=== PATIENT | female | born 1930 | race Caucasian/White ===

== ENCOUNTER 2017-01-16 07:29 | Inpatient (IN) | payer OTHER, MEDICARE ==
[2017-01-14 12:35] VITALS: BMI 28.8
--- NOTE | 2017-01-16 08:08 | HP ---
Satellite [facility] - Chief Complaint Chief Complaint: left shoulder mass - Past Medical History Allergies/Adverse Reactions: Allergies Allergy/AdvReac Type Severity Reaction Status Date / Time No Known Allergies Allergy Verified 01/14/17 12:25 - Current Medications Current Medications: Home Medications Medication Instructions Recorded Metoprolol Succinate [Toprol XL -] 25 mg PO HS #0 tab.sr.24h 06/05/13 Rosuvastatin Calcium [Crestor] 5 mg NR HS #0 tablet 06/05/13 Sertraline HCl [Zoloft -] 50 mg PO DAILY #0 tablet 06/05/13 Levothyroxine [Synthroid -] 137 mcg PO DAILY 01/14/17 Olmesartan Medoxomil [Benicar -] 40 mg PO DAILY 01/14/17 Hydrocodone/Acetaminophen [[place] 1 each PO Q6H PRN #40 tablet MDD 4 01/16/17 5-325 Tablet] Satellite Physical Exam - Physical Examination General Appearance: Well Nourished, Well Developed, Alert & Oriented x3 ENT: Clear Lung: Normal air movement Heart: Regular rate & rhythm Extremities: Other (left shoulder- + mass, full rom, nvi) Neurological: Intact, Alert, Oriented Satellite Impression/Plan - Impression/Plan Impression: left shoulder mass Operative Procedure: left shoulder mass excision Date to be Performed: 01/16/17
[2017-01-16] MEDS ORDERED: ROCURONIUM BROMIDE 50 MG/5 ML VIAL ONE (09:14)
[2017-01-16] MEDS ORDERED: MIDAZOLAM HCL 2 MG/2 ML SINGLE DOSE VIAL ONE (09:14)
[2017-01-16] MEDS ORDERED: ePHEDrine SULFATE 50 MG/1 ML AMPULE ONE ×3 (09:15→14:26)
[2017-01-16] MEDS ORDERED: ceFAZolin SODIUM 1 GM VIAL IVPB ONE (09:45)
[2017-01-16] MEDS ORDERED: SODIUM CHLORIDE 0.9% P/F 10 ML VIAL IJ ONE (10:08)
[2017-01-16] MEDS ORDERED: DEXAMETHASONE SOD PHOSPHATE 4 MG/1 ML VIAL ONE (10:11)
[2017-01-16] MEDS ORDERED: PHENYLEPHRINE HCL 10 MG/1 ML SINGLE DOSE VIAL ONE (10:12)
[2017-01-16] MEDS ORDERED: NEOSTIGMINE METHYLSULFATE 0.5 MG/ML - 10 ML MDV ONE (11:28)
--- NOTE | 2017-01-16 11:37 | OP ---
Operative Note - Note: Operative Date: 01/16/17 ([facility]) Pre-Operative Diagnosis: left shoulder mass Operation: left shoulder mass excision Post-Operative Diagnosis: Same as Pre-op Surgeon: Ubaldo Virgen Poultry Picker: Martinez Corral Anesthesiologist/PACKER INSPECTOR: Herminia Echevarria MD Anesthesia: General Specimens Removed: mass Estimated Blood Loss (mls): 1,200 Blood Volume Replaced (mls): 1 Operative Report Dictated: Yes
[2017-01-16] MEDS ORDERED: oxyCODONE HCL 5 MG TABLET PO PRN (12:08)
[2017-01-16] MEDS: ONDANSETRON 4 MG/2 ML VIAL IVPUSH PRN ×2 (12:30→13:30)
[2017-01-16] MEDS ORDERED: ONDANSETRON 4 MG/2 ML VIAL ONE (12:47)
[2017-01-16 13:29] LABS: TROPONIN I 0.02 ng/ml (0.00-0.05)
--- NOTE | 2017-01-16 14:00 | EKG ---
Test Reason : Blood Pressure : / mmHG Vent. Rate : 119 BPM Atrial Rate : 119 BPM P-R Int : 160 ms QRS Dur : 086 ms QT Int : 332 ms P-R-T Axes : 039 -34 062 degrees QTc Int : 467 ms SINUS TACHYCARDIA LEFT AXIS DEVIATION LEFT VENTRICULAR HYPERTROPHY WITH REPOLARIZATION ABNORMALITY ABNORMAL ECG WHEN COMPARED WITH ECG OF 04-JUN-2013 18:54, NO SIGNIFICANT CHANGE WAS FOUND Confirmed by UNIQUE PELAYO MD ([id number]) on 01/16/2017 2:00:47 PM Referred By: Carol ROCHE Confirmed By:UNIQUE PELAYO MD
[2017-01-16] MEDS: SODIUM CHLORIDE 1,000 ML IV SCH (16:00)
--- NOTE | 2017-01-16 16:18 | CON.CARD ---
Consult Consult Specialty:: Cardiology Reason for Consultation:: Post OP tachycardia - History of Present Illness Chief Complaint: S/P removal of shoulder mass History of Present Illness: This is an 86 year old female with a left should mass. She is S/P OR to remove the mass. Initial EKG after the surgery was Sinus tachycardia at 119 BPM with LAD, LVH, and NSSTTW changes. Troponin level 0.02. Her vital signs subsequently stabilized. - Alcohol/Substance Use Hx Alcohol Use: No - Smoking History Smoking history: Never smoked Have you smoked in the past 12 months: No Aproximately how many cigarettes per day: 0 Home Medications - Allergies Allergies/Adverse Reactions: Allergies Allergy/AdvReac Type Severity Reaction Status Date / Time No Known Allergies Allergy Verified 01/14/17 12:25 - Home Medications Home Medications: Ambulatory Orders Metoprolol Succinate [Toprol XL -] 25 mg PO HS #0 tab.sr.24h 06/05/13 Rosuvastatin Calcium [Crestor] 5 mg NR HS #0 tablet 06/05/13 Sertraline HCl [Zoloft -] 50 mg PO DAILY #0 tablet 06/05/13 Levothyroxine [Synthroid -] 137 mcg PO DAILY 01/14/17 Olmesartan Medoxomil [Benicar -] 40 mg PO DAILY 01/14/17 Hydrocodone/Acetaminophen [[place] 5-325 Tablet] 1 each PO Q6H PRN #40 tablet MDD 4 01/16/17 Review of Systems Unable to obtain ROS, reason: As per HPI Vital Signs: Vital Signs Temperature 97.6 F 01/16/17 15:30 Pulse Rate 103 H 01/16/17 15:30 Respiratory Rate 16 01/16/17 15:30 Blood Pressure 95/45 01/16/17 15:30 O2 Sat by Pulse Oximetry (%) 100 01/16/17 15:30 Constitutional: Yes: No Distress Neck: Yes: WNL Respiratory: Yes: CTA Bilaterally Gastrointestinal: Yes: Soft Cardiovascular: Yes: Regular Rate and Rhythm Heart Sounds: Yes: S1, S2 (No MRHG) Extremities: Yes: WNL Edema: No Neurological: Yes: WNL, Alert (Non focal), Oriented Psychiatric: Yes: WNL - Other Data Labs, Other Data: Troponin, BNP 01/16/17 12:20 Troponin I 0.02 Troponin, BNP 01/16/17 12:20 Troponin I 0.02 Assessment/Plan This is an 86 year old female with a left should mass. She is S/P OR to remove the mass. Initial EKG after the surgery was Sinus tachycardia at 119 BPM with LAD, LVH, and NSSTTW changes. Troponin level 0.02. Her vital signs subsequently stabilized. BP 95/45 mmHg Would hold Olmesartan Medoxomil (Benicar) given low BP Would continue Metoprolol XL 25 mg daily Will follow with you.
[2017-01-16 17:35] LABS: MCH 29.1 pg (25.7-33.7); MCHC 33.6 g/dl (32.0-36.0); MEAN CELL VOLUME 86.5 fl (80-96); MEAN PLT VOLUME 9.2 fl (7.5-11.1); PLATELET COUNT 218 K/MM3 (134-434); RDW 13.4 % (11.6-15.6); WHITE BLOOD COUNT 23.2 K/mm3 (4.0-10.0)
[2017-01-16] MEDS: CEFAZOLIN (PRE-DOCKED) 50 ML IVPB SCH (18:53)
[2017-01-16 20:03] LABS: PLATELET ESTIMATE ADEQUATE (NORMAL)
--- NOTE | 2017-01-16 20:28 | CONSULT ---
Consult Consult Specialty:: Pulm/CCM Reason for Consultation:: Intra-op blood loss, tachycardia and hypoension - History of Present Illness Chief Complaint: Post-op hypotension History of Present Illness: 86yow who is day #0 for removal of llT shoulder mass. OR course complicated by large ESBL with subsequent tachycardia and hypotension. She rec'd 2U PRBCs intra -op. In PACU rec'd another PRBC 1L NS bolus with improvement in BP. She was transferred to ICU for monitoring. In ICU Lt shoulder dressing dry. Post-op CBCwith Hgb 13-> - History Source History Provided By: Medical Record Limitations to Obtaining History: No Limitations - Past Medical History Cardio/Vascular: Yes: HTN, Hyperlipdemia - Alcohol/Substance Use Hx Alcohol Use: No - Smoking History Smoking history: Never smoked Have you smoked in the past 12 months: No Aproximately how many cigarettes per day: 0 Home Medications - Allergies Allergies/Adverse Reactions: Allergies Allergy/AdvReac Type Severity Reaction Status Date / Time No Known Allergies Allergy Verified 01/14/17 12:25 - Home Medications Home Medications: Ambulatory Orders Metoprolol Succinate [Toprol XL -] 25 mg PO HS #0 tab.sr.24h 06/05/13 Rosuvastatin Calcium [Crestor] 5 mg NR HS #0 tablet 06/05/13 Sertraline HCl [Zoloft -] 50 mg PO DAILY #0 tablet 06/05/13 Levothyroxine [Synthroid -] 137 mcg PO DAILY 01/14/17 Olmesartan Medoxomil [Benicar -] 40 mg PO DAILY 01/14/17 Hydrocodone/Acetaminophen [[place] 5-325 Tablet] 1 each PO Q6H PRN #40 tablet MDD 4 01/16/17 Family Disease History - Family Disease History Family History: Unremarkable Review of Systems - Review of Systems Constitutional: reports: No Symptoms Eyes: reports: No Symptoms HENT: reports: No Symptoms Neck: reports: No Symptoms Cardiovascular: reports: No Symptoms Respiratory: reports: No Symptoms Gastrointestinal: reports: No Symptoms Genitourinary: reports: No Symptoms Breasts: reports: No Symptoms Reported Musculoskeletal: reports: Joint Pain (Lt shoulder post-op pain) Neurological: reports: No Symptoms Endocrine: reports: No Symptoms Hematology/Lymphatic: reports: No Symptoms Psychiatric: reports: No Symptoms Pain Intensity: 7 Physical Exam Vital Signs: Vital Signs Temperature 98.4 F 08/09/17 16:00 Pulse Rate 71 01/16/17 18:00 Respiratory Rate 23 01/16/17 18:00 Blood Pressure 88/61 01/16/17 18:00 O2 Sat by Pulse Oximetry (%) 96 01/16/17 18:45 Constitutional: Yes: Well Nourished, Calm Eyes: Yes: Conjunctiva Clear HENT: Yes: Normocephalic Neck: Yes: Supple Cardiovascular: Yes: Regular Rate and Rhythm, Tachycardia Respiratory: Yes: WNL, Regular, CTA Bilaterally Gastrointestinal: Yes: Normal Bowel Sounds, Soft Musculoskeletal: Yes: Other (Lt shoulder with bulky surgical dressing with stable amt pink drainage; fingers warm , good cosmetic account coordinator, no reports numbness or tingling) Edema: No Neurological: Yes: Alert, Oriented ...Motor Strength: WNL Psychiatric: Yes: WNL, Alert, Oriented Labs: CBC, BMP 01/16/17 17:31 CBC,CMP WBC 23.2 K/mm3 (4.0-10.0) H D 01/16/17 17:31 RBC 4.55 M/mm3 (3.60-5.2) 01/16/17 17:31 Hgb 13.2 GM/dL (10.7-15.3) 01/16/17 17:31 Hct 39.3 % (32.4-45.2) 01/16/17 17:31 MCV 86.5 fl (80-96) 01/16/17 17:31 MCH 29.1 pg (25.7-33.7) 01/16/17 17:31 MCHC 33.6 g/dl (32.0-36.0) 01/16/17 17:31 RDW 13.4 % (11.6-15.6) 01/16/17 17:31 Plt Count 218 K/MM3 (134-434) 01/16/17 17:31 MPV 9.2 fl (7.5-11.1) 01/16/17 17:31 Neutrophils % 79.0 % (42.8-82.8) 01/16/17 17:31 Lymphocytes % 7.0 % (8-40) L D 01/16/17 17:31 Monocytes % 3.0 % (3.8-10.2) L 01/16/17 17:31 Band Neutrophils 11.0 % (0-10) H 01/16/17 17:31 Differential Comment Manual diff done 01/16/17 17:31 Platelet Estimate Adequate 01/16/17 17:31 Morphology Comment Slide scanned 01/16/17 17:31 Creatine Kinase 114 IU/L (26-192) 01/16/17 12:20 Troponin I 0.02 ng/ml (0.00-0.05) 01/16/17 12:20 Problem List - Problems (1) Post-op pain Code(s): G89.18 - OTHER ACUTE POSTPROCEDURAL PAIN (2) Hemorrhage complicating a procedure Code(s): LKA0976 - Assessment/Plan 86yow with PMH of HTN, HLD who was admitted to ICU for monitoring after 1.2L ESBL during lt shoulder mass excision. She was resuscitated with 3U PRBC and 1L NS. She remains tachycardic but BP stable. Dressing with stable drainage. Plan: -Serial CBC -Transfuse for e/o bleeding +/- Hgb <8 -HD monitoring -Hold antihypertensives for now -NC O2 as needed for O2 sat>92% -Pain management -Venodynes
[2017-01-16] MEDS ORDERED: PT OWN MED DRAWER 7, Y5N ONE (21:08)
[2017-01-16] MEDS: ACETAMINOPHEN 325 MG TABLET (FP) PO PRN (21:10)
[2017-01-16 21:21] LABS: MCH 29.1 pg (25.7-33.7); MCHC 33.9 g/dl (32.0-36.0); MEAN PLT VOLUME 9.4 fl (7.5-11.1); PLATELET COUNT 188 K/MM3 (134-434); RDW 13.7 % (11.6-15.6); WHITE BLOOD COUNT 20.7 K/mm3 (4.0-10.0)
[2017-01-16] MEDS: ROSUVASTATIN CA 5 MG TABLET (FP) PO SCH (21:22)
[2017-01-16] MEDS: METOPROLOL SUCCINATE 25 MG TAB.SR.24H (FP) PO SCH (21:37)
[2017-01-16] MEDS ORDERED: LACTATED RINGERS SOLUTION 1,000 ML IV STA (22:29)
[2017-01-17] MEDS ORDERED: LACTATED RINGERS SOLUTION 1,000 ML IV STA (00:05)
[2017-01-17] MEDS: MAG HYDROX/AL HYDROX/SIMETH 30 ML UNIT-DOSE CUP PO PRN (00:14)
[2017-01-17 00:17] LABS: MCH 29.4 pg (25.7-33.7); MCHC 34.2 g/dl (32.0-36.0); MEAN CELL VOLUME 85.9 fl (80-96); MEAN PLT VOLUME 9.3 fl (7.5-11.1); PLATELET COUNT 162 K/MM3 (134-434); RDW 13.8 % (11.6-15.6); WHITE BLOOD COUNT 16.2 K/mm3 (4.0-10.0)
[2017-01-17] MEDS: CEFAZOLIN (PRE-DOCKED) 50 ML IVPB SCH (03:21)
[2017-01-17] MEDS ORDERED: ONDANSETRON 4 MG/2 ML VIAL IVPUSH ONE (05:58)
[2017-01-17] MEDS ORDERED: LEVOTHYROXINE NA 125 MCG TABLET (FP) ONE (06:21)
[2017-01-17] MEDS ORDERED: LEVOTHYROXINE NA 25 MCG TABLET (FP) ONE (06:21)
[2017-01-17 06:32] LABS: MCH 29.4 pg (25.7-33.7); MCHC 34.7 g/dl (32.0-36.0); MEAN CELL VOLUME 84.8 fl (80-96); MEAN PLT VOLUME 9.3 fl (7.5-11.1); PLATELET COUNT 159 K/MM3 (134-434); RDW 13.7 % (11.6-15.6); WHITE BLOOD COUNT 13.9 K/mm3 (4.0-10.0)
[2017-01-17] MEDS: LEVOTHYROXINE 125 MCG, LEVOTHYROXINE 12.5 MCG PO SCH (06:34)
[2017-01-17] MEDS: DEXTROSE 5%-NORMAL SALINE 1,000 ML IV SCH (06:35)
[2017-01-17 06:42] LABS: INR 1.14 (0.82-1.09); PROTHROMBIN TIME (PATIENT) 12.6 SEC (9.98-11.88)
[2017-01-17 06:58] LABS: ALBUMIN 2.2 g/dl (3.4-5.0); ANION GAP 10 (8-16); BILIRUBIN,TOTAL 0.5 mg/dL (0.2-1.0); CALCIUM 7.4 mg/dL (8.5-10.1); CO2 25 mmol/L (21-32); CREATININE 0.9 mg/dL (0.55-1.02); GLUCOSE,RANDOM 160 mg/dL (74-106); MAGNESIUM 1.7 mg/dL (1.8-2.4); PHOSPHOROUS 2.8 mg/dL (2.5-4.9); SGOT/AST 12 U/L (15-37); SGPT/ALT 11 U/L (12-78)
[2017-01-17 06:59] LABS: ALK PHOS 33 U/L (45-117); TOT PROT 4.4 g/dl (6.4-8.2)
--- NOTE | 2017-01-17 07:39 | OP ---
DATE OF OPERATION: 01/16/2017 PREOPERATIVE DIAGNOSES: Left shoulder mass. POSTOPERATIVE DIAGNOSES: Left shoulder mass. PROCEDURE: Excision mass left shoulder and skin flap closure. SURGEON: Daryl Ordonez M.D. HAT MODEL: RIRI Vyas, Dr. Echevarria and Ani Lima CRNA. ANESTHESIA: General anesthesia. BLOOD LOSS: 1200 mL BLOOD GIVEN: 2 units packed red blood cells. DRAINS: None. COMPLICATIONS: None. SPECIMEN: Mass left shoulder. FLUID REPLACEMENT: 1500 mL Plasm-Lyte. This patient is an 86 -year-old female with a preoperative diagnosis of a huge mass in her left shoulder. In short, it has been growing for many years, probably [address] 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 After extensive preoperative discussions, the patient elected for a debulking procedure. She understands that there is some potential risks and complications including but not limited to infection, need for additional surgery, plastic surgery, redundant skin, poor cosmetic scar, recurrence of the mass, lack of full excision of the mass, pathology consistent with malignancy and requiring additional treatment, etc. She understands these and other potential risks and complications were discussed and the patient elected to undergo a debulking left shoulder procedure. It was clear to her that we would not attempt to get all of the tissue, if there is an adherence to neurovascular structures or if it went into the chest posteriorly or anteriorly. The patient was brought to the operating room, peripheral IV placed, IV sedation given, 2 gm of IV Ancef were given. LMA anesthesia was induced. She was placed into the beach chair position, left upper extremity was prepped and draped in a sterile fashion. A longitudinal incision was marked out with a marking pen over the midline of this mass. The skin was cut with a #10 scalpel blade. Subcutaneous hemostasis was achieved with a Bovie cautery. Dissection done down to the deltoid which was quite thin as a result of chronic outward pressure. The deltoid was split in line with its fibers for later repair. This revealed a very large fibrous mass. It was mostly yellowish and quite firm. There was one area of a seroma within the mass. It was incised to take pressure off and the serous fluid removed. Using a combination of self-retaining retractors and [employer] Mccune forceps for visualization I attempted to circumferentially dissect around the mass. I was adherent to the undersurface of the deltoid as well as the lateral aspect of the humerus and great care was taken to preserve any structures although by the end of the case no significant neurovascular structures were visualized or encountered. The mass was huge. I would estimate it was at least 12 inches x 12 inches. Some details of the surgery was that the anterior hemisphere was more consistent and homogenous fibrous tissue. The posterior hemisphere was more heterogenous with an area about the size of a baseball of inconsistent calcifications. The mass itself was no particularly vascular, it did not involve the humerus at all. That portion of the procedure was quite easy as it just came off the humerus. There was no extension into or out from the bone that I could see. There is no periosteal reaction. It was taken out piecemeal although I did have a long conversation with the pathologist postoperatively about the orientation of the mass and the consistency of the fibrous tissue in the anterior versus the posterior hemisphere. 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 Most of the mass was excised anteriorly, superiorly and laterally. There was a portion of very thick, dense, fibrous tissue which was still left in place along its most medial border near the rotator cuff and posteriorly tracing back towards the scapula and thoracic wall. This I left in place. We attempted to get excellent hemostasis all during the surgery. There was extensive blood loss however, estimated to be 1200 mL by myself and the anesthesiologist. Although, there were no specific untoward events, the patient was hypotensive throughout the case and she received a transfusion of 2 units of packed red blood cells at the end of the case continuing into the recovery room. That being said, she was no more unstable than hypotensive. The area was then copiously irrigated and washed out. Again, hemostasis was achieved. We waited and watched and there was no significant bleeding, just minor oozing. The deltoid was closed with 0 Vicryl sutures and I tried to eliminate some of the redundancy. I cut out an ellipse of redundant skin and did a skin wound flap closure. The 2-0 Vicryl was used to close the deep dermal layer, it came together quite well although distally there was some redundant tissue. Preoperative discussions made the patient clear that she may need some other skin surgery or plastic surgery which was not in my field. Final skin reapproximation was done with carleen in order to get the patient off the table as quickly as possible and although her blood pressure was stable but low. It was then washed and dried, covered with Xeroform and 4 x 4 gauze, ABD and tape. She was put into a sling, extubated, and brought to the ambulatory recovery room in stable condition. In the recovery room she was seen to be stable, continuing to get her 2 units of packed red blood cells as well as normal saline and she will be admitted overnight to the intensive care unit for observation, medical and cardiac evaluation. Although, as mentioned, no specific events have happened thus far. SURGERY: 1. Excision mass left shoulder. 2. Skin flap closure. DARYL ORDONEZ M.D. [id number]
[2017-01-17] MEDS ORDERED: RANITIDINE HCL 150 MG TABLET (FP) PO ONE (08:15)
--- NOTE | 2017-01-17 08:26 | CONSULT ---
Consult - History of Present Illness History of Present Illness: 86 Y/O FEMALE WITH H/O REMOVAL OF LARGE SHOULDER MASS PT REQUIRED PRBC PT NOTED WITH HYPOTENSION NO CP C/O DYSPEPSIA - Past Medical History Cardio/Vascular: Yes: HTN, Hyperlipdemia - Alcohol/Substance Use Hx Alcohol Use: No - Smoking History Smoking history: Never smoked Have you smoked in the past 12 months: No Aproximately how many cigarettes per day: 0 Home Medications - Allergies Allergies/Adverse Reactions: Allergies Allergy/AdvReac Type Severity Reaction Status Date / Time No Known Allergies Allergy Verified 01/14/17 12:25 - Home Medications Home Medications: Ambulatory Orders Metoprolol Succinate [Toprol XL -] 25 mg PO HS #0 tab.sr.24h 06/05/13 Rosuvastatin Calcium [Crestor] 5 mg NR HS #0 tablet 06/05/13 Sertraline HCl [Zoloft -] 50 mg PO DAILY #0 tablet 06/05/13 Levothyroxine [Synthroid -] 137 mcg PO DAILY 01/14/17 Olmesartan Medoxomil [Benicar -] 40 mg PO DAILY 01/14/17 Hydrocodone/Acetaminophen [[place] 5-325 Tablet] 1 each PO Q6H PRN #40 tablet MDD 4 01/16/17 Review of Systems - Review of Systems Cardiovascular: denies: Chest Pain Respiratory: denies: SOB Gastrointestinal: reports: Indigestion Musculoskeletal: reports: Extremity Pain Physical Exam Vital Signs: Vital Signs Temperature 99.2 F 01/17/17 07:00 Pulse Rate 95 H 01/17/17 07:00 Respiratory Rate 24 01/17/17 07:00 Blood Pressure 94/54 01/17/17 07:00 O2 Sat by Pulse Oximetry (%) 96 01/16/17 21:00 Cardiovascular: Yes: Regular Rate and Rhythm Respiratory: Yes: Regular, CTA Bilaterally Gastrointestinal: Yes: Normal Bowel Sounds, Soft Labs: CBC, BMP 01/17/17 05:15 01/17/17 05:15 Problem List - Problems (1) Hemorrhage complicating a procedure Assessment/Plan: FOLLOW LABS PRBC Code(s): PXM2160 - (2) Post-op pain Assessment/Plan: PAIN MEDS PER ORTHO Code(s): G89.18 - OTHER ACUTE POSTPROCEDURAL PAIN (3) HTN (hypertension) Assessment/Plan: HOLD MEDS AND MONITOR Code(s): I10 - ESSENTIAL (PRIMARY) HYPERTENSION (4) Dyspepsia Assessment/Plan: [place] PPI FOLLOW CE Code(s): R10.13 - EPIGASTRIC PAIN
[2017-01-17] MEDS ORDERED: PT OWN MED DRAWER 7, Y5N ONE (08:44)
--- NOTE | 2017-01-17 09:16 | PN ---
Progress Note (short form) - Note Progress Note: Pt seen and examined in ICU. She is completely awake and alert, only min c/o incisional pain left shoulder. No SOB, no CP, no diaphoresis. AVSS HR 95, mildly tachycardic BP low but stable, and at her normal baseline H/H mildly low 9.3/26.8 PE LUE looks great. Dressing CDI, no drainage, no bleeding NVI Excellent ROM at the elbow, forearm, wrist, fingers. Overall pt looks very good, stable, comfortable on POD #1 s/p large left shoulder mass excision. She is currently getting transfused another unit of PRBC. From an orthopedic pov she looks stable to discharge home this afternoon, if cleared by cardiology and PMD. F/U as an out pt in 7-10 days
[2017-01-17] MEDS: SERTRALINE HCL 50 MG TABLET (FP) PO SCH (09:55)
[2017-01-17] MEDS ORDERED: LEVOTHYROXINE NA 125 MCG TABLET (FP) PO SCH (10:00)
[2017-01-17] MEDS ORDERED: PANTOPRAZOLE SODIUM 100 ML IVPB SCH (10:00)
[2017-01-17] MEDS ORDERED: PANTOPRAZOLE 40 MG TABLET (FP) PO SCH (10:00)
--- NOTE | 2017-01-17 10:45 | PN ---
Progress Note (short form) - Note Progress Note: Anesthesia postop note 86 y/o F s/p GA for excision of left shoulder mass POD#1, in ICU aaox3, vss maintained without pressors, being transfused again this am. Intraoperative course complicated by significant blood loss, patient transfused intraop and postop, no cardiac or neurologic event. No anesthesia complications. further care as per critical care/ cardiology/ surgery teams.
[2017-01-17 10:54] LABS: CPK 137 IU/L (26-192); TROPONIN I 0.04 ng/ml (0.00-0.05)
[2017-01-17] MEDS: SODIUM CHLORIDE 1,000 ML IV SCH ×2 (14:00→16:00)
--- NOTE | 2017-01-17 14:01 | CONSULT ---
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: Peripheral Neuropathy Cardio/Vascular: Yes: HTN, Hyperlipdemia - Alcohol/Substance Use Hx Alcohol Use: No - Smoking History Smoking history: Never smoked Have you smoked in the past 12 months: No Aproximately how many cigarettes per day: 0 Home Medications - Allergies Allergies/Adverse Reactions: Allergies Allergy/AdvReac Type Severity Reaction Status Date / Time No Known Allergies Allergy Verified 01/14/17 12:25 - Home Medications Home Medications: Ambulatory Orders Metoprolol Succinate [Toprol XL -] 25 mg PO HS #0 tab.sr.24h 06/05/13 Rosuvastatin Calcium [Crestor] 5 mg NR HS #0 tablet 06/05/13 Sertraline HCl [Zoloft -] 50 mg PO DAILY #0 tablet 06/05/13 Levothyroxine [Synthroid -] 137 mcg PO DAILY 01/14/17 Olmesartan Medoxomil [Benicar -] 40 mg PO DAILY 01/14/17 Hydrocodone/Acetaminophen [[place] 5-325 Tablet] 1 each PO Q6H PRN #40 tablet MDD 4 01/16/17 Family Disease History - Family Disease History Family History: Unable to Obtain Physical Exam Vital Signs: Vital Signs Temperature 98.7 F 01/17/17 10:00 Pulse Rate 94 H 01/17/17 12:00 Respiratory Rate 30 H 01/17/17 12:00 Blood Pressure 101/51 01/17/17 12:00 O2 Sat by Pulse Oximetry (%) 96 01/17/17 09:00 Labs: CBC, BMP 01/17/17 05:15 01/17/17 05:15
--- NOTE | 2017-01-17 14:44 | PN ---
Teaching Attending Note Name of Resident: Odell Gonzales ATTENDING PHYSICIAN STATEMENT I saw and evaluated the patient. I reviewed the resident's note and discussed the case with the resident. I agree with the resident's findings and plan as documented. SUBJECTIVE: Patient seen and examined in the ICU. Awake and alert. Denies CP or SOB. Receiving pRBCs. No occult bleeding. Intake & Output 01/14/17 01/15/17 01/16/17 01/17/17 23:59 23:59 23:59 23:59 Intake Total 3650 3050 Output Total 1200 Balance 2450 3050 Weight 173 lb Last Vital Signs Temp Pulse Resp BP Pulse Ox 98.7 F 94 H 30 H 101/51 96 01/17/17 10:00 01/17/17 12:00 01/17/17 12:00 01/17/17 12:00 01/17/17 09:00 Active Medications Acetaminophen (Tylenol -) 650 mg PO Q6H PRN Last Admin: 01/16/17 21:10 Dose: 650 mg Al Hydroxide/Mg Hydroxide (Mylanta Oral Suspension -) 30 ml PO Q6H PRN PRN Reason: DYSPEPSIA Last Admin: 01/17/17 00:14 Dose: 30 ml Fentanyl (Sublimaze Injection -) 50 mcg IVPUSH [id number] PRN PRN Reason: PAIN Stop: 01/19/17 13:23 Sodium Chloride (Normal Saline -) 1,000 mls @ 42 mls/hr IV ASDIR [facility] Last Admin: 01/16/17 16:00 Dose: Not Given Dextrose/Sodium Chloride (D5-Ns -) 1,000 mls @ 75 mls/hr IV ASDIR [facility] Last Admin: 01/17/17 06:35 Dose: 75 mls/hr Levothyroxine Sodium 125 mcg/ (Levothyroxine Sodium 12.5 mcg) 137.5 mcg PO DAILY@0700 [facility] Last Admin: 01/17/17 06:34 Dose: 137.5 mcg Magnesium Chloride (Slow-Mag -) 64 mg PO DAILY [facility] Metoprolol Succinate (Toprol Xl -) 25 mg PO HS [facility] Last Admin: 01/16/17 21:37 Dose: Not Given Morphine Sulfate (Morphine Injection -) 1 mg IVPUSH Q4H PRN PRN Reason: PAIN Oxycodone HCl (Roxicodone -) 10 mg PO Q6H PRN PRN Reason: PAIN LEVEL 6-10 Last Admin: 01/17/17 01:26 Dose: 5 mg Pantoprazole Sodium (Protonix -) 40 mg PO BID [facility] Rosuvastatin Calcium (Crestor -) 5 mg PO HS [facility] Last Admin: 01/16/17 21:22 Dose: 5 mg Sertraline HCl (Zoloft -) 50 mg PO DAILY [facility] Last Admin: 01/17/17 09:55 Dose: 50 mg Valsartan (Diovan -) 320 mg PO DAILY [facility] Constitutional: Yes: Awake and alert, NAD Eyes: Yes: Conjunctiva Clear HENT: Yes: Normocephalic Neck: Yes: Supple Cardiovascular: Yes: Regular Rate and Rhythm, Tachycardia Respiratory: Yes: WNL, Regular, CTA Bilaterally Gastrointestinal: Yes: Normal Bowel Sounds, Soft Musculoskeletal: Yes: Other (Lt shoulder with bulky surgical dressing with stable amt pink drainage; fingers warm , good boarding specialist, no reports numbness or tingling) Edema: No Neurological: Yes: Alert, Oriented ...Motor Strength: WNL Psychiatric: Yes: WNL, Alert, Oriented Labs: Laboratory Results - last 24 hr 01/16/17 01/16/17 01/16/17 10:00 17:31 20:40 WBC 23.2 H D 20.7 H RBC 4.55 4.14 Hgb 13.2 12.1 Hct 39.3 35.6 MCV 86.5 86.0 MCH 29.1 29.1 MCHC 33.6 33.9 RDW 13.4 13.7 Plt Count 218 188 MPV 9.2 9.4 Neutrophils % 79.0 Lymphocytes % 7.0 L D Monocytes % 3.0 L Band Neutrophils 11.0 H Differential Comment Manual diff done Platelet Estimate Adequate Morphology Comment Slide scanned INR PTT (Actin FS) Sodium Potassium Chloride Carbon Dioxide Anion Gap BUN Creatinine Creat Clearance w eGFR Random Glucose Calcium Phosphorus Magnesium Total Bilirubin AST ALT Alkaline Phosphatase Creatine Kinase Troponin I Total Protein Albumin Blood Type B POSITIVE Antibody Screen Negative Crossmatch See Detail Crossmatch IS Only See Detail 01/17/17 01/17/17 01/17/17 00:00 05:15 05:15 WBC 16.2 H 13.9 H RBC 3.55 L 3.16 L Hgb 10.4 L D 9.3 L D Hct 30.5 L 26.8 L MCV 85.9 84.8 MCH 29.4 29.4 MCHC 34.2 34.7 RDW 13.8 13.7 Plt Count 162 159 MPV 9.3 9.3 Neutrophils % Lymphocytes % Monocytes % Band Neutrophils Differential Comment Platelet Estimate Morphology Comment INR 1.14 PTT (Actin FS) 25.0 L Sodium Potassium Chloride Carbon Dioxide Anion Gap BUN Creatinine Creat Clearance w eGFR Random Glucose Calcium Phosphorus Magnesium Total Bilirubin AST ALT Alkaline Phosphatase Creatine Kinase Troponin I Total Protein Albumin Blood Type Antibody Screen Crossmatch Crossmatch IS Only 01/17/17 01/17/17 05:15 05:15 WBC RBC Hgb Hct MCV MCH MCHC RDW Plt Count MPV Neutrophils % Lymphocytes % Monocytes % Band Neutrophils Differential Comment Platelet Estimate Morphology Comment INR PTT (Actin FS) Sodium 138 Potassium 4.1 D Chloride 103 Carbon Dioxide 25 Anion Gap 10 BUN 22 H Creatinine 0.9 Creat Clearance w eGFR 59.23 Random Glucose 160 H Calcium 7.4 L Phosphorus 2.8 Magnesium 1.7 L Total Bilirubin 0.5 D AST 12 L ALT 11 L D Alkaline Phosphatase 33 L D Creatine Kinase 137 Cancelled Troponin I 0.04 Cancelled Total Protein 4.4 L D Albumin 2.2 L D Blood Type Antibody Screen Crossmatch Crossmatch IS Only Problem List - Problems (1) Post-op pain Code(s): G89.18 - OTHER ACUTE POSTPROCEDURAL PAIN (2) Hemorrhage complicating a procedure Code(s): MTS8425 - Assessment/Plan Normal transfusion thresholds O2 as needed Hold BP meds until stable SCDs Pain control Incentive Spirometry Dr Narvaez
[2017-01-17 14:58] LABS: MCH 29.6 pg (25.7-33.7); MCHC 34.5 g/dl (32.0-36.0); MEAN PLT VOLUME 9.1 fl (7.5-11.1); PLATELET COUNT 135 K/MM3 (134-434); RDW 13.7 % (11.6-15.6); WHITE BLOOD COUNT 13.9 K/mm3 (4.0-10.0)
--- NOTE | 2017-01-17 15:28 | EKG ---
Test Reason : Blood Pressure : / mmHG Vent. Rate : 094 BPM Atrial Rate : 094 BPM P-R Int : 166 ms QRS Dur : 086 ms QT Int : 352 ms P-R-T Axes : 064 -16 049 degrees QTc Int : 440 ms NORMAL SINUS RHYTHM NONSPECIFIC T WAVE ABNORMALITY ABNORMAL ECG WHEN COMPARED WITH ECG OF 16-JAN-2017 12:17, NON-SPECIFIC CHANGE IN ST SEGMENT IN LATERAL LEADS NONSPECIFIC T WAVE ABNORMALITY, WORSE IN LATERAL LEADS Confirmed by AVRIL JOHNSON MD ([id number]) on 01/17/2017 3:28:30 PM Referred By: BERNABE SANTORO Confirmed By:AVRIL JOHNSON MD
--- NOTE | 2017-01-17 15:37 | PN ---
Physical Exam: SUBJECTIVE: Patient seen and examined. She is complaining of heartburn today, no pain at surgical site. OBJECTIVE: Vital Signs Period Temp Pulse Resp BP Sys/Hernandez Pulse Ox Last 24 Hr 98.4 F-99.4 F 61-106 16-30 79-115/38-75 96-96 GENERAL: The patient is awake, alert, and fully oriented, in no acute distress. HEAD: Normal with no signs of trauma. EYES: PERRL, extraocular movements intact, sclera anicteric, conjunctiva clear. No ptosis. NECK: Trachea midline, full range of motion, supple. LUNGS: Breath sounds equal, clear to auscultation bilaterally, no wheezes, no crackles, no accessory muscle use. HEART: Regular rate and rhythm, S1, S2 without murmur, rub or gallop. ABDOMEN: Soft, nontender, nondistended, normoactive bowel sounds, no guarding, no rebound. EXTREMITIES: 2+ pulses, warm, well-perfused, no edema. NEUROLOGICAL: Cranial nerves II through X grossly intact. Normal speech, gait not observed. no focal neuro deficits. PSYCH: Normal mood, normal affect. SKIN: Warm, dry, normal turgor, no rashes or lesions noted Laboratory Results - last 24 hr 01/16/17 01/16/17 01/16/17 10:00 17:31 20:40 WBC 23.2 H D 20.7 H RBC 4.55 4.14 Hgb 13.2 12.1 Hct 39.3 35.6 MCV 86.5 86.0 MCH 29.1 29.1 MCHC 33.6 33.9 RDW 13.4 13.7 Plt Count 218 188 MPV 9.2 9.4 Neutrophils % 79.0 Lymphocytes % 7.0 L D Monocytes % 3.0 L Band Neutrophils 11.0 H Differential Comment Manual diff done Platelet Estimate Adequate Morphology Comment Slide scanned INR PTT (Actin FS) Sodium Potassium Chloride Carbon Dioxide Anion Gap BUN Creatinine Creat Clearance w eGFR Random Glucose Calcium Phosphorus Magnesium Total Bilirubin AST ALT Alkaline Phosphatase Creatine Kinase Troponin I Total Protein Albumin Blood Type B POSITIVE Antibody Screen Negative Crossmatch See Detail Crossmatch IS Only See Detail 01/17/17 01/17/17 01/17/17 00:00 05:15 05:15 WBC 16.2 H 13.9 H RBC 3.55 L 3.16 L Hgb 10.4 L D 9.3 L D Hct 30.5 L 26.8 L MCV 85.9 84.8 MCH 29.4 29.4 MCHC 34.2 34.7 RDW 13.8 13.7 Plt Count 162 159 MPV 9.3 9.3 Neutrophils % Lymphocytes % Monocytes % Band Neutrophils Differential Comment Platelet Estimate Morphology Comment INR 1.14 PTT (Actin FS) 25.0 L Sodium Potassium Chloride Carbon Dioxide Anion Gap BUN Creatinine Creat Clearance w eGFR Random Glucose Calcium Phosphorus Magnesium Total Bilirubin AST ALT Alkaline Phosphatase Creatine Kinase Troponin I Total Protein Albumin Blood Type Antibody Screen Crossmatch Crossmatch IS Only 01/17/17 01/17/17 01/17/17 05:15 05:15 14:15 WBC 13.9 H RBC 3.52 L Hgb 10.4 L D Hct 30.2 L MCV 86.0 MCH 29.6 MCHC 34.5 RDW 13.7 Plt Count 135 MPV 9.1 Neutrophils % Lymphocytes % Monocytes % Band Neutrophils Differential Comment Platelet Estimate Morphology Comment INR PTT (Actin FS) Sodium 138 Potassium 4.1 D Chloride 103 Carbon Dioxide 25 Anion Gap 10 BUN 22 H Creatinine 0.9 Creat Clearance w eGFR 59.23 Random Glucose 160 H Calcium 7.4 L Phosphorus 2.8 Magnesium 1.7 L Total Bilirubin 0.5 D AST 12 L ALT 11 L D Alkaline Phosphatase 33 L D Creatine Kinase 137 Cancelled Troponin I 0.04 Cancelled Total Protein 4.4 L D Albumin 2.2 L D Blood Type Antibody Screen Crossmatch Crossmatch IS Only Active Medications Generic Name Dose Route Start Last Admin Trade Name Freq PRN Reason Stop Dose Admin Acetaminophen 650 mg 01/16/17 12:09 01/16/17 21:10 Tylenol - PO 650 mg Q6H PRN Administration Al Hydroxide/Mg Hydroxide 30 ml 01/16/17 23:36 01/17/17 00:14 Mylanta Oral Suspension - PO 30 ml Q6H PRN Administration DYSPEPSIA Fentanyl 50 mcg 01/16/17 13:22 Sublimaze Injection - IVPUSH 01/19/17 13:23 [id number] PRN PAIN Sodium Chloride 1,000 mls @ 42 mls/hr 01/16/17 14:00 01/16/17 16:00 Normal Saline - IV Not Given ASDIR [facility] Dextrose/Sodium Chloride 1,000 mls @ 75 mls/hr 01/17/17 05:45 01/17/17 06:35 D5-Ns - IV 75 mls/hr ASDIR [facility] Administration Levothyroxine Sodium 125 mcg/ 137.5 mcg 01/17/17 07:00 01/17/17 06:34 Levothyroxine Sodium 12.5 mcg PO 137.5 mcg DAILY@0700 [facility] Administration Magnesium Chloride 64 mg 01/17/17 14:30 Slow-Mag - PO DAILY [facility] Metoprolol Succinate 25 mg 01/16/17 22:00 01/16/17 21:37 Toprol Xl - PO Not Given HS [facility] Morphine Sulfate 1 mg 01/16/17 11:38 Morphine Injection - IVPUSH Q4H PRN PAIN Oxycodone HCl 10 mg 01/16/17 12:08 01/17/17 01:26 Roxicodone - PO 5 mg Q6H PRN Administration PAIN LEVEL 6-10 Pantoprazole Sodium 40 mg 01/17/17 22:00 Protonix - PO BID [facility] Rosuvastatin Calcium 5 mg 01/16/17 22:00 01/16/17 21:22 Crestor - PO 5 mg HS [facility] Administration Sertraline HCl 50 mg 01/17/17 10:00 01/17/17 09:55 Zoloft - PO 50 mg DAILY [facility] Administration Valsartan 320 mg 01/17/17 10:00 Diovan - PO DAILY [facility] ASSESSMENT/PLAN: Neuro: -no deficits, A&Ox3 -Monitor right arm for weakness, numbness Cardio: -pmh htn -valsartan 320mg daily -toprol xl 25mg PO HS Hematology: -s/p tumor resection with a large estimated blood loss -s/p 1 unit overnight and 1 unit today -s/p 4 units this visit -Hb stable, 10.4 -> 9.3 -> 10.4 -no weakness, dizziness, lightheadedness -will transfuse as indicated Abdominal: -PMH hiatal hernia c/o acid reflux -Zantac 150mg daily -Protonix 40mg BID FEN: -D5NS @ 75 -magnesium 1.7; will replete. will continue to monitor -Sodium controlled diet Dispo: -patient is stable to transfer to a telemetry floor Problem List - Problems (1) Dyspepsia Code(s): R10.13 - EPIGASTRIC PAIN (2) HTN (hypertension) Code(s): I10 - ESSENTIAL (PRIMARY) HYPERTENSION (3) Hemorrhage complicating a procedure Code(s): GUJ9240 - (4) Post-op pain Code(s): G89.18 - OTHER ACUTE POSTPROCEDURAL PAIN (5) Blood loss anemia Code(s): D50.0 - IRON DEFICIENCY ANEMIA SECONDARY TO BLOOD LOSS (CHRONIC) Visit type - Emergency Visit Emergency Visit: Yes ED Registration Date: 01/16/17 Care time: The patient presented to the Emergency Department on the above date and was hospitalized for further evaluation of their emergent condition. - New Patient This patient is new to me today: Yes Date on this admission: 01/17/17 - Critical Care Critical Care patient: No Total Critical Care Time (in minutes): 40 Critical Care Statement: The care of this patient involved high complexity decision making to prevent further life threatening deterioration of the patient 's condition and/or to evaluate & treat vital organ system(s) failure or risk of failure.
--- NOTE | 2017-01-17 16:32 | PN ---
Progress Note, Physician Chief Complaint: Appears comfortable History of Present Illness: This is an 86 year old female with a left should mass. She is S/P OR to remove the mass. Initial EKG after the surgery was Sinus tachycardia at 119 BPM with LAD, LVH, and NSSTTW changes. Troponin level 0.02. Her vital signs subsequently stabilized. - Current Medication List Current Medications: Active Medications Acetaminophen (Tylenol -) 650 mg PO Q6H PRN Last Admin: 01/16/17 21:10 Dose: 650 mg Al Hydroxide/Mg Hydroxide (Mylanta Oral Suspension -) 30 ml PO Q6H PRN PRN Reason: DYSPEPSIA Last Admin: 01/17/17 00:14 Dose: 30 ml Fentanyl (Sublimaze Injection -) 50 mcg IVPUSH [id number] PRN PRN Reason: PAIN Stop: 01/19/17 13:23 Sodium Chloride (Normal Saline -) 1,000 mls @ 42 mls/hr IV ASDIR [facility] Last Admin: 01/16/17 16:00 Dose: Not Given Dextrose/Sodium Chloride (D5-Ns -) 1,000 mls @ 75 mls/hr IV ASDIR [facility] Last Admin: 01/17/17 06:35 Dose: 75 mls/hr Levothyroxine Sodium 125 mcg/ (Levothyroxine Sodium 12.5 mcg) 137.5 mcg PO DAILY@0700 [facility] Last Admin: 01/17/17 06:34 Dose: 137.5 mcg Magnesium Chloride (Slow-Mag -) 64 mg PO DAILY [facility] Metoprolol Succinate (Toprol Xl -) 25 mg PO [facility] Last Admin: 01/16/17 21:37 Dose: Not Given Morphine Sulfate (Morphine Injection -) 1 mg IVPUSH Q4H PRN PRN Reason: PAIN Oxycodone HCl (Roxicodone -) 10 mg PO Q6H PRN PRN Reason: PAIN LEVEL 6-10 Last Admin: 01/17/17 01:26 Dose: 5 mg Pantoprazole Sodium (Protonix -) 40 mg PO BID [facility] Rosuvastatin Calcium (Crestor -) 5 mg PO [facility] Last Admin: 01/16/17 21:22 Dose: 5 mg Sertraline HCl (Zoloft -) 50 mg PO DAILY [facility] Last Admin: 01/17/17 09:55 Dose: 50 mg Valsartan (Diovan -) 320 mg PO DAILY [facility] - Objective Vital Signs: Vital Signs Temperature 98.7 F 01/17/17 10:00 Pulse Rate 94 H 01/17/17 12:00 Respiratory Rate 30 H 01/17/17 12:00 Blood Pressure 101/51 01/17/17 12:00 O2 Sat by Pulse Oximetry (%) 96 01/17/17 09:00 Constitutional: Yes: No Distress Neck: Yes: WNL Cardiovascular: Yes: Regular Rate and Rhythm, S1, S2 (No MRHG) Respiratory: Yes: CTA Bilaterally Gastrointestinal: Yes: Soft Extremities: Yes: WNL Edema: No Neurological: Yes: WNL Psychiatric: Yes: WNL Labs: CBC, BMP 01/17/17 14:15 01/17/17 05:15 INR, PTT INR 1.14 (0.82-1.09) 01/17/17 05:15 Assessment/Plan This is an 86 year old female with a left should mass. She is S/P OR to remove the mass. Initial EKG after the surgery was Sinus tachycardia at 119 BPM with LAD, LVH, and NSSTTW changes. Troponin level 0.02. Her vital signs subsequently stabilized. Continue cardiac medications: Metoprolol Succinate (Toprol Xl -) 25 mg PO HS [facility] Last Admin: 01/16/17 21:37 Dose: Not Given Rosuvastatin Calcium (Crestor -) 5 mg PO [facility] Last Admin: 01/16/17 21:22 Dose: 5 mg Valsartan (Diovan -) 320 mg PO DAILY [facility] Will follow with you.
[2017-01-17] MEDS: MAGNESIUM CL 64 MG TABLET.SA PO SCH (17:10)
[2017-01-17] MEDS: PANTOPRAZOLE 40 MG TABLET (FP) PO SCH (21:30)
[2017-01-17] MEDS: METOPROLOL SUCCINATE 25 MG TAB.SR.24H (FP) PO SCH (21:30)
[2017-01-17] MEDS: ROSUVASTATIN CA 5 MG TABLET (FP) PO SCH (21:30)
[2017-01-17] MEDS: ACETAMINOPHEN 325 MG TABLET (FP) PO PRN (21:34)
[2017-01-17] MEDS: morphine CARPU-JECT 4 MG/1 ML DISP.SYRIN IVPUSH PRN (23:57)
[2017-01-18] MEDS ORDERED: LEVOTHYROXINE NA 25 MCG TABLET (FP) ONE (05:41)
[2017-01-18] MEDS ORDERED: LEVOTHYROXINE NA 125 MCG TABLET (FP) ONE (05:41)
[2017-01-18] MEDS: LEVOTHYROXINE 125 MCG, LEVOTHYROXINE 12.5 MCG PO SCH (06:31)
[2017-01-18] MEDS: DEXTROSE 5%-NORMAL SALINE 1,000 ML IV SCH (06:31)
[2017-01-18 07:51] LABS: MCH 29.2 pg (25.7-33.7); MCHC 33.7 g/dl (32.0-36.0); MEAN CELL VOLUME 86.6 fl (80-96); PLATELET COUNT 112 K/MM3 (134-434); RDW 14.1 % (11.6-15.6); WHITE BLOOD COUNT 11.2 K/mm3 (4.0-10.0)
[2017-01-18 08:12] LABS: ALBUMIN 2.1 g/dl (3.4-5.0); ALK PHOS 37 U/L (45-117); ANION GAP 4 (8-16); BILIRUBIN,TOTAL 0.5 mg/dL (0.2-1.0); CALCIUM 7.2 mg/dL (8.5-10.1); CO2 29 mmol/L (21-32); CREATININE 0.6 mg/dL (0.55-1.02); GLUCOSE,RANDOM 124 mg/dL (74-106); SGOT/AST 9 U/L (15-37); SGPT/ALT 8 U/L (12-78); TOT PROT 4.4 g/dl (6.4-8.2)
--- NOTE | 2017-01-18 08:34 | PN ---
Progress Note (short form) - Note Progress Note: Ortho Pt see and examined s/p left shoulder mass excision pod #2- doing well Selected Entries 01/18/17 06:00 Temperature 98.2 F Pulse Rate 90 Respiratory 16 Rate Blood Pressure 124/73 Laboratory Tests 01/18/17 05:50 WBC 11.2 H Hgb 8.7 L D Hct 26.0 L Plt Count 112 L dressing c/d/i, full rom of elbow, wrist and hand, nvi a/p PT eval before d/c rom and wbat on left UE sling for comfort ok to d/c from ortho pov f/u in the office in 7-10 days
[2017-01-18] MEDS ORDERED: PT OWN MED DRAWER 7, Y5N ONE (08:40)
[2017-01-18] MEDS: SERTRALINE HCL 50 MG TABLET (FP) PO SCH (09:50)
[2017-01-18] MEDS: MAGNESIUM CL 64 MG TABLET.SA PO SCH (09:50)
[2017-01-18] MEDS: PANTOPRAZOLE 40 MG TABLET (FP) PO SCH ×2 (09:50→21:33)
[2017-01-18] MEDS: VALSARTAN 160 MG TABLET (UD) PO SCH ×2 (11:41→12:05)
--- NOTE | 2017-01-18 12:06 | PN ---
Progress Note, Physician Chief Complaint: patient seen and examined today POD 2 s/p left shoulder mass excision awake alert wants to sit in chair today says she will got to her nephew home in [place] when she leaves the hospital needs to see PT today , possible VNS referral as well - Current Medication List Current Medications: Active Medications Acetaminophen (Tylenol -) 650 mg PO Q6H PRN Last Admin: 01/17/17 21:34 Dose: 650 mg Al Hydroxide/Mg Hydroxide (Mylanta Oral Suspension -) 30 ml PO Q6H PRN PRN Reason: DYSPEPSIA Last Admin: 01/17/17 00:14 Dose: 30 ml Fentanyl (Sublimaze Injection -) 50 mcg IVPUSH [id number] PRN PRN Reason: PAIN Stop: 01/19/17 13:23 Dextrose/Sodium Chloride (D5-Ns -) 1,000 mls @ 75 mls/hr IV ASDIR [facility] Last Admin: 01/18/17 06:31 Dose: 75 mls/hr Levothyroxine Sodium 125 mcg/ (Levothyroxine Sodium 12.5 mcg) 137.5 mcg PO DAILY@0700 [facility] Last Admin: 01/18/17 06:31 Dose: 137.5 mcg Magnesium Chloride (Slow-Mag -) 64 mg PO DAILY [facility] Last Admin: 01/18/17 09:50 Dose: 64 mg Metoprolol Succinate (Toprol Xl -) 25 mg PO [facility] Last Admin: 01/17/17 21:30 Dose: 25 mg Morphine Sulfate (Morphine Injection -) 1 mg IVPUSH Q4H PRN PRN Reason: PAIN Last Admin: 01/17/17 23:57 Dose: 1 mg Oxycodone HCl (Roxicodone -) 10 mg PO Q6H PRN PRN Reason: PAIN LEVEL 6-10 Last Admin: 01/17/17 01:26 Dose: 5 mg Pantoprazole Sodium (Protonix -) 40 mg PO BID [facility] Last Admin: 01/18/17 09:50 Dose: 40 mg Rosuvastatin Calcium (Crestor -) 5 mg PO HS [facility] Last Admin: 01/17/17 21:30 Dose: 5 mg Sertraline HCl (Zoloft -) 50 mg PO DAILY [facility] Last Admin: 01/18/17 09:50 Dose: 50 mg Valsartan (Diovan -) 320 mg PO DAILY [facility] Last Admin: 01/18/17 11:41 Dose: 320 mg - Objective Vital Signs: Vital Signs Temperature 98.9 F 01/18/17 09:13 Pulse Rate 83 01/18/17 09:13 Respiratory Rate 18 01/18/17 09:13 Blood Pressure 106/60 01/18/17 09:13 O2 Sat by Pulse Oximetry (%) 95 01/18/17 09:00 Constitutional: Yes: Calm Cardiovascular: Yes: Regular Rate and Rhythm, S1, S2 Respiratory: Yes: CTA Bilaterally Gastrointestinal: Yes: Normal Bowel Sounds, Soft Extremities: Yes: Other (left shoulder dressing) Neurological: Yes: Alert, Oriented Labs: CBC, BMP 01/18/17 05:50 01/18/17 05:50 INR, PTT INR 1.14 (0.82-1.09) 01/17/17 05:15 Problem List - Problems (1) Blood loss anemia Assessment/Plan: s/p 4 units of PRBC repeat cbc as today its 8.7 if less than will transfuse 1 unit Code(s): D50.0 - IRON DEFICIENCY ANEMIA SECONDARY TO BLOOD LOSS (CHRONIC) (2) HTN (hypertension) Assessment/Plan: valsartan and toprol Code(s): I10 - ESSENTIAL (PRIMARY) HYPERTENSION (3) Mass of joint of left shoulder Assessment/Plan: s/p excision PT eval today VNS referral pain control stool softner Code(s): R22.32 - LOCALIZED SWELLING, MASS AND LUMP, LEFT UPPER LIMB (4) Hypothyroid Assessment/Plan: check tsh on synthroid Code(s): E03.9 - HYPOTHYROIDISM, UNSPECIFIED
[2017-01-18 12:57] LABS: BASOPHIL 0.5 % (0-2.0); EOSINOPHIL 0.4 % (0-4.5); MCHC 33.7 g/dl (32.0-36.0); MEAN CELL VOLUME 86.2 fl (80-96); MEAN PLT VOLUME 9.1 fl (7.5-11.1); NEUTROPHILS 81.6 % (42.8-82.8); PLATELET COUNT 143 K/MM3 (134-434); WHITE BLOOD COUNT 12.8 K/mm3 (4.0-10.0)
--- NOTE | 2017-01-18 15:20 | PN ---
Progress Note, Physician Chief Complaint: Appears comfortable History of Present Illness: This is an 86 year old female with a left should mass. She is S/P OR to remove the mass. Initial EKG after the surgery was Sinus tachycardia at 119 BPM with LAD, LVH, and NSSTTW changes. Troponin level 0.02. Her vital signs subsequently stabilized. - Current Medication List Current Medications: Active Medications Acetaminophen (Tylenol -) 650 mg PO Q6H PRN Last Admin: 01/17/17 21:34 Dose: 650 mg Al Hydroxide/Mg Hydroxide (Mylanta Oral Suspension -) 30 ml PO Q6H PRN PRN Reason: DYSPEPSIA Last Admin: 01/17/17 00:14 Dose: 30 ml Fentanyl (Sublimaze Injection -) 50 mcg IVPUSH [id number] PRN PRN Reason: PAIN Stop: 01/19/17 13:23 Levothyroxine Sodium 125 mcg/ (Levothyroxine Sodium 12.5 mcg) 137.5 mcg PO DAILY@0700 [facility] Last Admin: 01/18/17 06:31 Dose: 137.5 mcg Magnesium Chloride (Slow-Mag -) 64 mg PO DAILY [facility] Last Admin: 01/18/17 09:50 Dose: 64 mg Metoprolol Succinate (Toprol Xl -) 25 mg PO HS [facility] Last Admin: 01/17/17 21:30 Dose: 25 mg Morphine Sulfate (Morphine Injection -) 1 mg IVPUSH Q4H PRN PRN Reason: PAIN Last Admin: 01/17/17 23:57 Dose: 1 mg Oxycodone HCl (Roxicodone -) 10 mg PO Q6H PRN PRN Reason: PAIN LEVEL 6-10 Last Admin: 01/17/17 01:26 Dose: 5 mg Pantoprazole Sodium (Protonix -) 40 mg PO BID [facility] Last Admin: 01/18/17 09:50 Dose: 40 mg Rosuvastatin Calcium (Crestor -) 5 mg PO HS [facility] Last Admin: 01/17/17 21:30 Dose: 5 mg Sertraline HCl (Zoloft -) 50 mg PO DAILY [facility] Last Admin: 01/18/17 09:50 Dose: 50 mg Valsartan (Diovan -) 320 mg PO DAILY [facility] Last Admin: 01/18/17 12:05 Dose: Not Given - Objective Vital Signs: Vital Signs Temperature 98.9 F 01/18/17 09:13 Pulse Rate 83 01/18/17 09:13 Respiratory Rate 18 01/18/17 09:13 Blood Pressure 106/60 01/18/17 09:13 O2 Sat by Pulse Oximetry (%) 95 01/18/17 09:00 Constitutional: Yes: No Distress Neck: Yes: WNL Cardiovascular: Yes: Regular Rate and Rhythm, S1, S2 (No MRHG) Respiratory: Yes: CTA Bilaterally Gastrointestinal: Yes: Soft Edema: No Neurological: Yes: Alert, Oriented (No MRHG) Psychiatric: Yes: WNL Labs: CBC, BMP 01/18/17 12:40 01/18/17 05:50 INR, PTT INR 1.14 (0.82-1.09) 01/17/17 05:15 Assessment/Plan This is an 86 year old female with a left should mass. She is S/P OR to remove the mass. Initial EKG after the surgery was Sinus tachycardia at 119 BPM with LAD, LVH, and NSSTTW changes. Troponin level 0.02. Her vital signs subsequently stabilized. Continue cardiac medications: Metoprolol Succinate (Toprol Xl -) 25 mg PO HS [facility] Last Admin: 01/16/17 21:37 Dose: Not Given Rosuvastatin Calcium (Crestor -) 5 mg PO HS [facility] Last Admin: 01/16/17 21:22 Dose: 5 mg Valsartan (Diovan -) 320 mg PO DAILY [facility] - Not given for low BP Will follow with you.
[2017-01-18] MEDS: ROSUVASTATIN CA 5 MG TABLET (FP) PO SCH (21:33)
[2017-01-18] MEDS: METOPROLOL SUCCINATE 25 MG TAB.SR.24H (FP) PO SCH (21:33)
[2017-01-19] MEDS: morphine CARPU-JECT 4 MG/1 ML DISP.SYRIN IVPUSH PRN (00:16)
[2017-01-19] MEDS ORDERED: LEVOTHYROXINE NA 25 MCG TABLET (FP) ONE (05:53)
[2017-01-19] MEDS ORDERED: LEVOTHYROXINE NA 125 MCG TABLET (FP) ONE (05:54)
[2017-01-19] MEDS: LEVOTHYROXINE 125 MCG, LEVOTHYROXINE 12.5 MCG PO SCH (06:41)
[2017-01-19] MEDS ORDERED: PT OWN MED DRAWER 7, Y5N ONE (09:28)
[2017-01-19] MEDS: VALSARTAN 160 MG TABLET (UD) PO SCH (09:35)
[2017-01-19] MEDS: MAGNESIUM CL 64 MG TABLET.SA PO SCH (09:36)
[2017-01-19] MEDS: PANTOPRAZOLE 40 MG TABLET (FP) PO SCH ×2 (09:36→21:39)
[2017-01-19] MEDS: SERTRALINE HCL 50 MG TABLET (FP) PO SCH (09:36)
--- NOTE | 2017-01-19 10:35 | PN ---
Progress Note, Physician History of Present Illness: 86 Y/O FEMALE WITH H/O REMOVAL OF LARGE SHOULDER MASS PT REQUIRED PRBC PT NOTED WITH HYPOTENSION NO CP - Current Medication List Current Medications: Active Medications Acetaminophen (Tylenol -) 650 mg PO Q6H PRN Last Admin: 01/17/17 21:34 Dose: 650 mg Al Hydroxide/Mg Hydroxide (Mylanta Oral Suspension -) 30 ml PO Q6H PRN PRN Reason: DYSPEPSIA Last Admin: 01/17/17 00:14 Dose: 30 ml Fentanyl (Sublimaze Injection -) 50 mcg IVPUSH [id number] PRN PRN Reason: PAIN Stop: 01/19/17 13:23 Levothyroxine Sodium 125 mcg/ (Levothyroxine Sodium 12.5 mcg) 137.5 mcg PO DAILY@0700 [facility] Last Admin: 01/19/17 06:41 Dose: 137.5 mcg Magnesium Chloride (Slow-Mag -) 64 mg PO DAILY [facility] Last Admin: 01/19/17 09:36 Dose: 64 mg Metoprolol Succinate (Toprol Xl -) 25 mg PO [facility] Last Admin: 01/18/17 21:33 Dose: 25 mg Morphine Sulfate (Morphine Injection -) 1 mg IVPUSH Q4H PRN PRN Reason: PAIN Last Admin: 01/19/17 00:16 Dose: 1 mg Oxycodone HCl (Roxicodone -) 10 mg PO Q6H PRN PRN Reason: PAIN LEVEL 6-10 Last Admin: 01/17/17 01:26 Dose: 5 mg Pantoprazole Sodium (Protonix -) 40 mg PO BID [facility] Last Admin: 01/19/17 09:36 Dose: 40 mg Rosuvastatin Calcium (Crestor -) 5 mg PO [facility] Last Admin: 01/18/17 21:33 Dose: 5 mg Sertraline HCl (Zoloft -) 50 mg PO DAILY [facility] Last Admin: 01/19/17 09:36 Dose: 50 mg Valsartan (Diovan -) 320 mg PO DAILY [facility] Last Admin: 01/19/17 09:35 Dose: 320 mg - Objective Vital Signs: Vital Signs Temperature 99.5 F 01/19/17 09:39 Pulse Rate 87 01/19/17 09:39 Respiratory Rate 20 01/19/17 09:39 Blood Pressure 115/50 01/19/17 09:39 O2 Sat by Pulse Oximetry (%) 96 01/18/17 21:00 Cardiovascular: Yes: Regular Rate and Rhythm Respiratory: Yes: Regular, CTA Bilaterally Gastrointestinal: Yes: Normal Bowel Sounds, Soft. No: Tenderness Labs: CBC, BMP 01/18/17 12:40 01/18/17 05:50 INR, PTT INR 1.14 (0.82-1.09) 01/17/17 05:15 Problem List - Problems (1) Hemorrhage complicating a procedure Code(s): [id number] - (2) Post-op pain Code(s): G89.18 - OTHER ACUTE POSTPROCEDURAL PAIN (3) HTN (hypertension) Code(s): I10 - ESSENTIAL (PRIMARY) HYPERTENSION (4) Dyspepsia Code(s): R10.13 - EPIGASTRIC PAIN Assessment/Plan - Problems (1) Blood loss anemia Assessment/Plan: s/p 4 units of PRBC repeat cbc Code(s): D50.0 - IRON DEFICIENCY ANEMIA SECONDARY TO BLOOD LOSS (CHRONIC) (2) HTN (hypertension) Assessment/Plan: valsartan and toprol Code(s): I10 - ESSENTIAL (PRIMARY) HYPERTENSION (3) Mass of joint of left shoulder Assessment/Plan: s/p excision PT eval VNS referral pain control stool softner Code(s): R22.32 - LOCALIZED SWELLING, MASS AND LUMP, LEFT UPPER LIMB (4) Hypothyroid Assessment/Plan: check tsh on synthroid Code(s): E03.9 - HYPOTHYROIDISM, UNSPECIFIED
[2017-01-19 10:43] LABS: MCH 29.4 pg (25.7-33.7); MCHC 34.2 g/dl (32.0-36.0); MEAN CELL VOLUME 86.1 fl (80-96); MEAN PLT VOLUME 8.9 fl (7.5-11.1); PLATELET COUNT 131 K/MM3 (134-434); RDW 13.8 % (11.6-15.6); WHITE BLOOD COUNT 9.7 K/mm3 (4.0-10.0)
[2017-01-19] MEDS ORDERED: FUROSEMIDE 40 MG/4 ML INJECTABLE VIAL IVPUSH ONE (17:00)
[2017-01-19] MEDS: ACETAMINOPHEN 325 MG TABLET (FP) PO PRN (18:47)
[2017-01-19 19:04] LABS: BASOPHIL 0.3 % (0-2.0); EOSINOPHIL 0.2 % (0-4.5); MCH 29.6 pg (25.7-33.7); MCHC 34.1 g/dl (32.0-36.0); MEAN CELL VOLUME 86.9 fl (80-96); MEAN PLT VOLUME 9.2 fl (7.5-11.1); NEUTROPHILS 81.2 % (42.8-82.8); PLATELET COUNT 150 K/MM3 (134-434); RDW 13.4 % (11.6-15.6); WHITE BLOOD COUNT 10.1 K/mm3 (4.0-10.0)
[2017-01-19 20:01] LABS: URINE APPEARANCE CLEAR; URINE BILIRUBIN NEGATIVE (NEGATIVE); URINE BLOOD 1+ (NEGATIVE); URINE COLOR LTYELLOW; URINE GLUCOSE (UA) NEGATIVE (NEGATIVE); URINE KETONE NEGATIVE (NEGATIVE); URINE LEUK ESTERASE NEGATIVE (NEGATIVE); URINE NITRITE NEGATIVE (NEGATIVE); URINE PROTEIN NEGATIVE (NEGATIVE); URINE UROBILINOGEN NEGATIVE mg/dL (0.2-1.0)
[2017-01-19 20:05] LABS: URINE MUCUS RARE; URINE RBC <1 /hpf (0-3); URINE WBC 2 /hpf (3-5)
[2017-01-19] MEDS: METOPROLOL SUCCINATE 25 MG TAB.SR.24H (FP) PO SCH (21:39)
[2017-01-19] MEDS: ROSUVASTATIN CA 5 MG TABLET (FP) PO SCH (22:12)
[2017-01-19] MEDS ORDERED: VANCOMYCIN 1 GRAM (PRE-DOCKED) 1,000 MG/250 ML BAG IVPB ONE (23:45)
[2017-01-19] MEDS ORDERED: cefTRIAXone 1 GM/50 ML BAG (PRE-DOCKED) IVPB ONE (23:45)
[2017-01-20] MEDS: ACETAMINOPHEN 325 MG TABLET (FP) PO PRN ×2 (02:44→17:15)
[2017-01-20] MEDS ORDERED: FUROSEMIDE 40 MG/4 ML INJECTABLE VIAL ONE (03:13)
[2017-01-20] MEDS ORDERED: cefTRIAXone 1 GM/50 ML BAG (PRE-DOCKED) IVPB ONE (03:30)
[2017-01-20] MEDS ORDERED: VANCOMYCIN 1 GRAM (PRE-DOCKED) 1,000 MG/250 ML BAG IVPB ONE (03:30)
[2017-01-20] MEDS: LEVOTHYROXINE 125 MCG, LEVOTHYROXINE 12.5 MCG PO SCH (06:31)
--- NOTE | 2017-01-20 08:50 | PN ---
Progress Note (short form) - Note Progress Note: Pt seen and examined. She is doing very well. She has no c/o pain. She is using her left arm without any problems. AVSS - not tachycardic H/H trending low again, to 8.4/24.6 PE LUE NVI Excellent, painless ROM at the left elbow, forearm, wrist, fingers ROM at the L shoulder limited but present, mildly painful Large hematoma, no longer expanding. No drainage. Under sterile conditions I asprirated 700cc of serosanguinous fluid. No signs on infection. This should help decrease any pain, stiffness, possible drainage, and jump start her body's process of reabsorbing the post operative hematoma. Imp Overall I think she is doing very well. Post operative drops in H/H likely due to the ongoing hematoma. I believe now the bleeding has stopped, and the H/H should be more stable. Rec DC when cleared by PMD F/U with me in 5-10 days No specific restrictions of motion. Sling PRN
[2017-01-20 09:01] LABS: BASOPHIL 0.6 % (0-2.0); EOSINOPHIL 0.5 % (0-4.5); MCH 29.5 pg (25.7-33.7); MCHC 33.8 g/dl (32.0-36.0); MEAN CELL VOLUME 87.1 fl (80-96); MEAN PLT VOLUME 8.5 fl (7.5-11.1); NEUTROPHILS 77.2 % (42.8-82.8); PLATELET COUNT 177 K/MM3 (134-434); RDW 14.1 % (11.6-15.6); WHITE BLOOD COUNT 12.1 K/mm3 (4.0-10.0)
[2017-01-20 09:24] LABS: ALBUMIN 2.1 g/dl (3.4-5.0); ALK PHOS 49 U/L (45-117); ANION GAP 9 (8-16); BILIRUBIN,TOTAL 0.6 mg/dL (0.2-1.0); CALCIUM 7.4 mg/dL (8.5-10.1); CO2 28 mmol/L (21-32); CREATININE 0.7 mg/dL (0.55-1.02); GLUCOSE,RANDOM 115 mg/dL (74-106); SGOT/AST 21 U/L (15-37); SGPT/ALT 18 U/L (12-78); TOT PROT 5.1 g/dl (6.4-8.2)
--- NOTE | 2017-01-20 10:06 | PN ---
Progress Note, Physician History of Present Illness: 86 Y/O FEMALE WITH H/O REMOVAL OF LARGE SHOULDER MASS PT REQUIRED PRBC PT NOTED WITH HYPOTENSION NO CP FEVER LAST NIGHT - Current Medication List Current Medications: Active Medications Acetaminophen (Tylenol -) 650 mg PO Q6H PRN Last Admin: 01/20/17 02:44 Dose: 650 mg Al Hydroxide/Mg Hydroxide (Mylanta Oral Suspension -) 30 ml PO Q6H PRN PRN Reason: DYSPEPSIA Last Admin: 01/17/17 00:14 Dose: 30 ml Levothyroxine Sodium 125 mcg/ (Levothyroxine Sodium 12.5 mcg) 137.5 mcg PO DAILY@0700 [facility] Last Admin: 01/20/17 06:31 Dose: 137.5 mcg Magnesium Chloride (Slow-Mag -) 64 mg PO DAILY [facility] Last Admin: 01/19/17 09:36 Dose: 64 mg Metoprolol Succinate (Toprol Xl -) 25 mg PO [facility] Last Admin: 01/19/17 21:39 Dose: 25 mg Morphine Sulfate (Morphine Injection -) 1 mg IVPUSH Q4H PRN PRN Reason: PAIN Last Admin: 01/19/17 00:16 Dose: 1 mg Oxycodone HCl (Roxicodone -) 10 mg PO Q6H PRN PRN Reason: PAIN LEVEL 6-10 Last Admin: 01/17/17 01:26 Dose: 5 mg Pantoprazole Sodium (Protonix -) 40 mg PO BID [facility] Last Admin: 01/19/17 21:39 Dose: 40 mg Rosuvastatin Calcium (Crestor -) 5 mg PO [facility] Last Admin: 01/19/17 22:12 Dose: 5 mg Sertraline HCl (Zoloft -) 50 mg PO DAILY [facility] Last Admin: 01/19/17 09:36 Dose: 50 mg Valsartan (Diovan -) 320 mg PO DAILY [facility] Last Admin: 01/19/17 09:35 Dose: 320 mg - Objective Vital Signs: Vital Signs Temperature 98.2 F 01/20/17 05:00 Pulse Rate 78 01/20/17 05:00 Respiratory Rate 18 01/20/17 05:00 Blood Pressure 105/56 01/20/17 05:00 O2 Sat by Pulse Oximetry (%) 96 01/19/17 21:00 Cardiovascular: Yes: Regular Rate and Rhythm Respiratory: Yes: Regular, CTA Bilaterally Gastrointestinal: Yes: Normal Bowel Sounds, Soft Extremities: Yes: Other (SWELLING OF LEFT ARM DRESSING INTACT) Labs: CBC, BMP 01/20/17 08:55 01/20/17 08:55 INR, PTT INR 1.14 (0.82-1.09) 01/17/17 05:15 Problem List - Problems (1) Fever Assessment/Plan: CULTURE DONE ABX GIVEN--ID CONSULT Code(s): R50.9 - FEVER, UNSPECIFIED Assessment/Plan - Problems (1) Blood loss anemia Assessment/Plan: s/p 4 units of PRBC repeat cbc Code(s): D50.0 - IRON DEFICIENCY ANEMIA SECONDARY TO BLOOD LOSS (CHRONIC) (2) HTN (hypertension) Assessment/Plan: valsartan and toprol Code(s): I10 - ESSENTIAL (PRIMARY) HYPERTENSION (3) Mass of joint of left shoulder Assessment/Plan: s/p excision PT eval VNS referral pain control stool softner Code(s): R22.32 - LOCALIZED SWELLING, MASS AND LUMP, LEFT UPPER LIMB (4) Hypothyroid Assessment/Plan: check tsh on synthroid Code(s): E03.9 - HYPOTHYROIDISM, UNSPECIFIED
[2017-01-20] MEDS: VALSARTAN 160 MG TABLET (UD) PO SCH (10:47)
[2017-01-20] MEDS: SERTRALINE HCL 50 MG TABLET (FP) PO SCH (10:58)
[2017-01-20] MEDS: PANTOPRAZOLE 40 MG TABLET (FP) PO SCH ×2 (10:58→21:30)
[2017-01-20] MEDS: MAGNESIUM CL 64 MG TABLET.SA PO SCH (10:59)
--- NOTE | 2017-01-20 12:51 | PN ---
Progress Note (short form) - Note Progress Note: ID Consult dictated Post op fever/leukocytosis S/P excision L shoulder mass, POD #4 Victor v. infected hematoma Await c/s Empiric vancomycin/ cefepime
[2017-01-20] MEDS: CEFEPIME HCL IVPB SCH ×2 (14:41→18:42)
[2017-01-20] MEDS: VANCOMYCIN 1 GRAM (PRE-DOCKED) 250 ML IVPB SCH (14:41)
[2017-01-20] MEDS: D5W IVPB SCH ×2 (14:41→18:42)
[2017-01-20] MEDS ORDERED: POTASSIUM CHLORIDE TABS 20 MEQ TABLET.ER (FP) PO ONE (16:00)
[2017-01-20] MEDS: ROSUVASTATIN CA 5 MG TABLET (FP) PO SCH (21:29)
[2017-01-20] MEDS: METOPROLOL SUCCINATE 25 MG TAB.SR.24H (FP) PO SCH (21:30)
--- NOTE | 2017-01-20 21:32 | CONS ---
DATE OF CONSULTATION: DATE OF DICTATION: 01/20/2017 The patient is an 86-year-old female who is evaluated for postoperative fever. She reports that for many years she has had an enlarging left shoulder mass. She underwent a biopsy in 2010 at [facility] and was told the mass was benign. Because of the increasing size, she decided to have it excised. The patient was taken to the operating room on January 16, 2017, where an elective excision of left shoulder mass was performed. Postoperatively, her course was complicated by bleeding, requiring transfusion of packed red blood cells, tachycardia, and hypotension. She developed a post hematoma. Patient now has developed fever over the past 48 hours. Patient had fever to 100.8 last evening. She denies any shaking chills. She was seen in followup by Orthopedic Surgery. A bedside aspiration of the left shoulder was performed and yielded 700 mL of serosanguineous fluid. At the present time, she is awake and alert. She denies any shaking chills. She did experience some sweats when she had the fever last evening. She denies any chest pain, shortness of breath, cough, or sputum production. No vomiting or diarrhea. No dysuria or hematuria. Past medical history positive for hypertension and hyperlipidemia. No known allergies. MEDICATIONS: Toprol, Crestor, Zoloft, Synthroid, Benicar. SOCIAL HISTORY: She lives at home. She is a nonsmoker, nondrinker. SYSTEMS REVIEW: Neurologic: No loss of consciousness, seizure activity, or focal weakness. Cardiac: Negative for chest pain or palpitations. Respiratory: Negative for cough or sputum production. Gastrointestinal: Negative vomiting or diarrhea. Genitourinary: Negative for urinary tract infection. LABORATORY DATA: White count 12.1, hematocrit 28.7, platelet count 177. BUN 8, creatinine 0.7. Urinalysis: 2 white cells. Chest x-ray negative for acute infiltrate. Blood and urine cultures are pending. PHYSICAL EXAMINATION: General: She is awake and alert. She is not acutely toxic appearing. Vital Signs: Temperature 98.7. Blood pressure 102/50. Pulse 76, regular. Respirations 16 per minute. Eyes: Sclerae anicteric. Heart Sounds: S1, S2. Lungs: Clear bilaterally. No rhonchi, rales, or wheezing. Abdomen: Soft. No tenderness elicited. No mass, rebound or rigidity. Extremities: Negative for pedal edema. Examination of the left shoulder: The left shoulder is swollen and warm, with fluctuance. There is a surgical wound present with carleen in place. There is no erythema. No expressible pus. It is tender to touch. IMPRESSION: 1. Postoperative fever and leukocytosis. 2. Status post excision of left shoulder mass, postoperative day number 4. 3. [place] versus infected hematoma. Source of fever not clear, may be secondary to bland versus infected hematoma. The surgical wound does not appear clinically infected. All the potential sources for fever include atelectasis. Await cultures. Pending sepsis workup, empiric antibiotic coverage with vancomycin and cefepime. Repeat CBC. Will follow. Thank you for the kind referral. TIBURCIO ROJO M.D. [id number]
[2017-01-21] MEDS: VANCOMYCIN 1 GRAM (PRE-DOCKED) 250 ML IVPB SCH ×2 (00:18→13:23)
[2017-01-21] MEDS: CEFEPIME 1 GM/100 ML BAG PRE-DOCKED IVPB SCH ×2 (02:21→10:18)
[2017-01-21] MEDS ORDERED: LEVOTHYROXINE NA 25 MCG TABLET (FP) ONE (05:19)
[2017-01-21] MEDS ORDERED: LEVOTHYROXINE NA 125 MCG TABLET (FP) ONE (05:19)
[2017-01-21] MEDS: LEVOTHYROXINE 125 MCG, LEVOTHYROXINE 12.5 MCG PO SCH (06:53)
--- NOTE | 2017-01-21 09:06 | PN ---
Progress Note (short form) - Note Progress Note: Ortho Pt see and examined s/p left shoulder mass excision-s/p aspiration doing well Selected Entries 01/21/17 06:00 Temperature 98.6 F Pulse Rate 82 Respiratory 18 Rate Blood Pressure 105/57 Laboratory Tests 01/20/17 08:55 WBC 12.1 H Hgb 9.7 L D Hct 28.7 L D Plt Count 177 dressing c/d/i, full rom of elbow, wrist and hand, nvi a/p continue with compression bandage f/u cultures however likely due to hematoma ROM exercises d/c once medically cleared
[2017-01-21] MEDS ORDERED: PT OWN MED DRAWER 7, Y5N ONE (10:09)
[2017-01-21] MEDS: VALSARTAN 160 MG TABLET (UD) PO SCH (10:18)
[2017-01-21] MEDS: MAGNESIUM CL 64 MG TABLET.SA PO SCH (10:18)
[2017-01-21] MEDS: PANTOPRAZOLE 40 MG TABLET (FP) PO SCH ×2 (10:18→22:11)
[2017-01-21] MEDS: SERTRALINE HCL 50 MG TABLET (FP) PO SCH (10:18)
--- NOTE | 2017-01-21 13:06 | PN ---
Progress Note, Physician Chief Complaint: Episode of hypotension No fever chills ? related BP meds - Current Medication List Current Medications: Active Medications Acetaminophen (Tylenol -) 650 mg PO Q6H PRN Last Admin: 01/20/17 17:15 Dose: 650 mg Al Hydroxide/Mg Hydroxide (Mylanta Oral Suspension -) 30 ml PO Q6H PRN PRN Reason: DYSPEPSIA Last Admin: 01/17/17 00:14 Dose: 30 ml Cefepime HCl (Maxipime 1gm Ivpb Pre-Docked) 1 gm IVPB Q8H-IV RIVKA PRN Reason: Protocol Last Admin: 01/21/17 10:18 Dose: 1 gm Vancomycin HCl (Vancomycin (Pre-Docked)) 250 mls @ 166.667 mls/hr IVPB BID@0100 ,1300 [facility] Last Admin: 01/21/17 00:18 Dose: 166.667 mls/hr Levothyroxine Sodium 125 mcg/ (Levothyroxine Sodium 12.5 mcg) 137.5 mcg PO DAILY@0700 [facility] Last Admin: 01/21/17 06:53 Dose: 137.5 mcg Magnesium Chloride (Slow-Mag -) 64 mg PO DAILY [facility] Last Admin: 01/21/17 10:18 Dose: 64 mg Metoprolol Succinate (Toprol Xl -) 25 mg PO HS [facility] Last Admin: 01/20/17 21:30 Dose: 25 mg Morphine Sulfate (Morphine Injection -) 1 mg IVPUSH Q4H PRN PRN Reason: PAIN Last Admin: 01/19/17 00:16 Dose: 1 mg Oxycodone HCl (Roxicodone -) 10 mg PO Q6H PRN PRN Reason: PAIN LEVEL 6-10 Last Admin: 01/17/17 01:26 Dose: 5 mg Pantoprazole Sodium (Protonix -) 40 mg PO BID [facility] Last Admin: 01/21/17 10:18 Dose: 40 mg Rosuvastatin Calcium (Crestor -) 5 mg PO HS [facility] Last Admin: 01/20/17 21:29 Dose: 5 mg Sertraline HCl (Zoloft -) 50 mg PO DAILY [facility] Last Admin: 01/21/17 10:18 Dose: 50 mg Valsartan (Diovan -) 320 mg PO DAILY [facility] Last Admin: 01/21/17 10:18 Dose: 320 mg - Objective Vital Signs: Vital Signs Temperature 98.7 F 01/21/17 12:45 Pulse Rate 82 01/21/17 12:45 Respiratory Rate 16 01/21/17 12:45 Blood Pressure 102/46 01/21/17 12:45 O2 Sat by Pulse Oximetry (%) 96 01/21/17 09:00 Constitutional: Yes: Well Nourished, No Distress HENT: Yes: WNL, Atraumatic Neck: Yes: WNL, Supple Cardiovascular: Yes: S1, S2 Respiratory: Yes: WNL, Regular, CTA Bilaterally Gastrointestinal: Yes: WNL, Normal Bowel Sounds, Soft Extremities: Yes: Other (Leftshoulder dressing) Labs: CBC, BMP 01/20/17 08:55 01/20/17 08:55 INR, PTT INR 1.14 (0.82-1.09) 01/17/17 05:15 Assessment/Plan Microbiology 01/19/17 18:20 Urine - Urine Clean Catch Urine Culture - Final Contaminated: Please Repeat 01/19/17 18:30 Blood - Peripheral Venous Blood Culture - Preliminary NO GROWTH OBTAINED AFTER 24 HOURS, INCUBATION TO CONTINUE FOR 4 DAYS. 01/19/17 18:30 Blood - Peripheral Venous Blood Culture - Preliminary NO GROWTH OBTAINED AFTER 24 HOURS, INCUBATION TO CONTINUE FOR 4 DAYS. Laboratory Tests 01/19/17 01/20/17 01/20/17 19:30 08:55 08:55 WBC 12.1 H Hgb 9.7 L D Hct 28.7 L D Plt Count 177 BUN 8 D Creatinine 0.7 Urine RBC <1 Urine WBC 2 Assessment Post of fever no documented infection Currently looks stable Plan Observe off antibiotics Shazia LAM
[2017-01-21] MEDS: MAG HYDROX/AL HYDROX/SIMETH 30 ML UNIT-DOSE CUP PO PRN (13:07)
[2017-01-21] MEDS ORDERED: VALSARTAN 160 MG TABLET (UD) PO SCH (13:55)
--- NOTE | 2017-01-21 14:01 | PN ---
Progress Note, Physician Chief Complaint: Anemia tachycardia History of Present Illness: s/p let shoulder tumor removal tachycardia likely secondary to acute blood loss. NAD, was hypotensive earlier - Current Medication List Current Medications: Active Medications Acetaminophen (Tylenol -) 650 mg PO Q6H PRN Last Admin: 01/20/17 17:15 Dose: 650 mg Al Hydroxide/Mg Hydroxide (Mylanta Oral Suspension -) 30 ml PO Q6H PRN PRN Reason: DYSPEPSIA Last Admin: 01/21/17 13:07 Dose: 30 ml Levothyroxine Sodium 125 mcg/ (Levothyroxine Sodium 12.5 mcg) 137.5 mcg PO DAILY@0700 [facility] Last Admin: 01/21/17 06:53 Dose: 137.5 mcg Magnesium Chloride (Slow-Mag -) 64 mg PO DAILY [facility] Last Admin: 01/21/17 10:18 Dose: 64 mg Metoprolol Succinate (Toprol Xl -) 25 mg PO [facility] Last Admin: 01/20/17 21:30 Dose: 25 mg Morphine Sulfate (Morphine Injection -) 1 mg IVPUSH Q4H PRN PRN Reason: PAIN Last Admin: 01/19/17 00:16 Dose: 1 mg Oxycodone HCl (Roxicodone -) 10 mg PO Q6H PRN PRN Reason: PAIN LEVEL 6-10 Last Admin: 01/17/17 01:26 Dose: 5 mg Pantoprazole Sodium (Protonix -) 40 mg PO BID [facility] Last Admin: 01/21/17 10:18 Dose: 40 mg Rosuvastatin Calcium (Crestor -) 5 mg PO [facility] Last Admin: 01/20/17 21:29 Dose: 5 mg Sertraline HCl (Zoloft -) 50 mg PO DAILY [facility] Last Admin: 01/21/17 10:18 Dose: 50 mg Valsartan (Diovan -) 160 mg PO DAILY [facility] - Objective Vital Signs: Vital Signs Temperature 98.7 F 01/21/17 12:45 Pulse Rate 82 01/21/17 12:45 Respiratory Rate 16 01/21/17 12:45 Blood Pressure 102/46 01/21/17 12:45 O2 Sat by Pulse Oximetry (%) 96 01/21/17 09:00 Constitutional: Yes: Well Nourished, No Distress, Calm Cardiovascular: Yes: Regular Rate and Rhythm Respiratory: Yes: Regular Gastrointestinal: Yes: Normal Bowel Sounds Labs: CBC, BMP 01/20/17 08:55 01/20/17 08:55 INR, PTT INR 1.14 (0.82-1.09) 01/17/17 05:15 Problem List - Problems (1) Blood loss anemia Assessment/Plan: -3 units of PRBC ths admission -Iron studies -H/H stable at this time -check stool OB -monitor labs Code(s): D50.0 - IRON DEFICIENCY ANEMIA SECONDARY TO BLOOD LOSS (CHRONIC) (2) Dyspepsia Assessment/Plan: GI prophyalxis Code(s): R10.13 - EPIGASTRIC PAIN (3) HTN (hypertension) Assessment/Plan: -decrease diovan to 160 mg po daily -check orthostatic BP -seen by cardiology -SR with PAC's and PVC's on tele Code(s): I10 - ESSENTIAL (PRIMARY) HYPERTENSION (4) Mass of joint of left shoulder Code(s): R22.32 - LOCALIZED SWELLING, MASS AND LUMP, LEFT UPPER LIMB Assessment/Plan hold DVT prophylaxis, until shows signs of no bleeding and H/H close to baseline see problem list
--- NOTE | 2017-01-21 15:00 | PN ---
Progress Note, Physician Chief Complaint: Patient appears comfortable. She reports no chest pain, SOB or palpitation. Tele shows sinus rhythm with occasional APCs and VPCs. History of Present Illness: 86 year old woman with a history of left should mass. She is s/p tumor resection with significant blood loss. Initial EKG after the surgery was sinus tachycardia at 119 BPM with LAD (LAFB), LVH, and NSSTTW changes. Troponin level 0.02. Her vital signs subsequently stabilized. - Current Medication List Current Medications: Active Medications Acetaminophen (Tylenol -) 650 mg PO Q6H PRN Last Admin: 01/20/17 17:15 Dose: 650 mg Al Hydroxide/Mg Hydroxide (Mylanta Oral Suspension -) 30 ml PO Q6H PRN PRN Reason: DYSPEPSIA Last Admin: 01/21/17 13:07 Dose: 30 ml Levothyroxine Sodium 125 mcg/ (Levothyroxine Sodium 12.5 mcg) 137.5 mcg PO DAILY@0700 [facility] Last Admin: 01/21/17 06:53 Dose: 137.5 mcg Magnesium Chloride (Slow-Mag -) 64 mg PO DAILY [facility] Last Admin: 01/21/17 10:18 Dose: 64 mg Metoprolol Succinate (Toprol Xl -) 25 mg PO HS [facility] Last Admin: 01/20/17 21:30 Dose: 25 mg Morphine Sulfate (Morphine Injection -) 1 mg IVPUSH Q4H PRN PRN Reason: PAIN Last Admin: 01/19/17 00:16 Dose: 1 mg Oxycodone HCl (Roxicodone -) 10 mg PO Q6H PRN PRN Reason: PAIN LEVEL 6-10 Last Admin: 01/17/17 01:26 Dose: 5 mg Pantoprazole Sodium (Protonix -) 40 mg PO BID [facility] Last Admin: 01/21/17 10:18 Dose: 40 mg Rosuvastatin Calcium (Crestor -) 5 mg PO HS [facility] Last Admin: 01/20/17 21:29 Dose: 5 mg Sertraline HCl (Zoloft -) 50 mg PO DAILY [facility] Last Admin: 01/21/17 10:18 Dose: 50 mg Valsartan (Diovan -) 160 mg PO DAILY [facility] - Objective Vital Signs: Vital Signs Temperature 98.7 F 01/21/17 12:45 Pulse Rate 82 01/21/17 12:45 Respiratory Rate 16 01/21/17 12:45 Blood Pressure 102/46 01/21/17 12:45 O2 Sat by Pulse Oximetry (%) 96 01/21/17 09:00 Constitutional: Yes: Well Nourished, No Distress, Calm, Pallor Eyes: Yes: WNL HENT: Yes: Atraumatic, Normocephalic Neck: Yes: Supple, Trachea Midline Cardiovascular: Yes: Regular Rate and Rhythm, S1, S2 Respiratory: Yes: Regular, CTA Bilaterally Gastrointestinal: Yes: WNL, Normal Bowel Sounds, Soft ...Rectal Exam: Yes: Deferred Musculoskeletal: Yes: Other (Right shoulder dress intact. No bleeding.) Extremities: Yes: WNL Edema: No Wound/Incision: Yes: Clean/Dry Labs: CBC, BMP 01/20/17 08:55 01/20/17 08:55 INR, PTT INR 1.14 (0.82-1.09) 01/17/17 05:15 Assessment/Plan 86 year old woman with a history of left should mass. She is s/p tumor resection with significant blood loss. Initial EKG after the surgery was sinus tachycardia at 119 BPM with LAD (LAFB), LVH, and NSSTTW changes. Troponin level 0.02. No symptoms of angina or CHF. Contninue Metoprolol Succinate (Toprol Xl -) 25 mg daily and Crestor 5 mg daily. May hold Valsartan for relatively low BP.
[2017-01-21 15:44] LABS: MCH 30.2 pg (25.7-33.7); MCHC 34.5 g/dl (32.0-36.0); MEAN CELL VOLUME 87.4 fl (80-96); MEAN PLT VOLUME 8.5 fl (7.5-11.1); PLATELET COUNT 217 K/MM3 (134-434); WHITE BLOOD COUNT 10.1 K/mm3 (4.0-10.0)
[2017-01-21 16:13] LABS: ALBUMIN 1.9 g/dl (3.4-5.0); ANION GAP 11 (8-16); CALCIUM 7.5 mg/dL (8.5-10.1); CO2 29 mmol/L (21-32); GLUCOSE,RANDOM 120 mg/dL (74-106); SGOT/AST 55 U/L (15-37); SGPT/ALT 49 U/L (12-78)
[2017-01-21 16:16] LABS: ALK PHOS 54 U/L (45-117); BILIRUBIN,TOTAL 0.4 mg/dL (0.2-1.0); CREATININE 0.6 mg/dL (0.55-1.02)
[2017-01-21] MEDS ORDERED: POTASSIUM CHLORIDE TABS 20 MEQ TABLET.ER (FP) PO ONE (18:45)
[2017-01-21] MEDS: METOPROLOL SUCCINATE 25 MG TAB.SR.24H (FP) PO SCH (22:11)
[2017-01-21] MEDS: ROSUVASTATIN CA 5 MG TABLET (FP) PO SCH (22:11)
[2017-01-22] MEDS: LEVOTHYROXINE 125 MCG, LEVOTHYROXINE 12.5 MCG PO SCH (06:37)
--- NOTE | 2017-01-22 08:23 | DS ---
Physical Examination Vital Signs: Vital Signs Temperature 98 F 01/22/17 05:00 Pulse Rate 80 01/22/17 05:00 Respiratory Rate 20 01/22/17 05:00 Blood Pressure 120/66 01/22/17 05:00 O2 Sat by Pulse Oximetry (%) 96 01/21/17 21:00 Findings/Remarks: feels better Cardiovascular: Yes: Regular Rate and Rhythm Respiratory: Yes: Regular, CTA Bilaterally Gastrointestinal: Yes: Normal Bowel Sounds, Soft Extremities: Yes: Other (left shoulder with dressing) Labs: CBC, BMP 01/21/17 14:45 01/21/17 14:45 Discharge Summary Reason For Visit: MASS Current Active Problems Blood loss anemia (Acute) Dyspepsia (Acute) Fever (Acute) HTN (hypertension) (Acute) Hemorrhage complicating a procedure (Acute) Hypothyroid (Acute) Mass of joint of left shoulder (Acute) Post-op pain (Acute) Hospital Course: 86 Y/O FEMALE WITH H/O REMOVAL OF LARGE SHOULDER MASS PT REQUIRED PRBC PT NOTED WITH HYPOTENSION NO CP C/O DYSPEPSIA - Past Medical History Cardio/Vascular: Yes: HTN, Hyperlipdemia - Alcohol/Substance Use Hx Alcohol Use: No Problems (1) Blood loss anemia Assessment/Plan: -3 units of PRBC ths admission -Iron studies -H/H stable at this time -check stool OB -monitor labs Code(s): D50.0 - IRON DEFICIENCY ANEMIA SECONDARY TO BLOOD LOSS (CHRONIC) (2) Dyspepsia Assessment/Plan: GI prophyalxis Code(s): R10.13 - EPIGASTRIC PAIN (3) HTN (hypertension) Assessment/Plan: -decrease diovan to 160 mg po daily -check orthostatic BP -seen by cardiology -SR with PAC's and PVC's on tele Code(s): I10 - ESSENTIAL (PRIMARY) HYPERTENSION (4) Mass of joint of left shoulder Code(s): R22.32 - LOCALIZED SWELLING, MASS AND LUMP, LEFT UPPER LIMB Assessment/Plan DVT prophylaxis Condition: Good - Instructions Diet, Activity, Other Instructions: Post -op Instruction Sheet - Shoulder Surgery - Sling/Immobilizer : You have been placed in a sling or shoulder immobilizer. As long as you are wearing this, your shoulder is well protected. You may come out of the sling to dress , or do exercises as directed. You may bend and straighten the elbow, and move your wrist and fingers, but DO NOT use your own muscles to move your elbow away from your side until directed to do so. Please sleep with the sling on. You may find it more comfortable to sleep with a small pillow behind your elbow, or in a recliner. To wash your armpit, you may lean slightly forward and let your arm dangle slightly away from your side and wash with a washcloth. - Use an ice bag/pack on the shoulder for 15 minutes every 2 hours. - Pain medication was sent to your Pharmacy. - Keep your dressing clean and dry. Please call the office to make an appointment for 1 week after surgery. Your dressing will be removed at that time. - No Lifting. - Starting 1-2 days after surgery, you may take your arm out of the sling 3 times a day to bend and straighten your shoulder,elbow and wrist to prevent stiffness. - Please call the office at [phone] if there are any questions or concerns. Referrals: Ubaldo Virgen MD [Staff Physician] - - Home Medications Comprehensive Discharge Medication List: Ambulatory Orders Metoprolol Succinate [Toprol XL -] 25 mg PO HS #0 tab.sr.24h 06/05/13 Rosuvastatin Calcium [Crestor] 5 mg NR HS #0 tablet 06/05/13 Sertraline HCl [Zoloft -] 50 mg PO DAILY #0 tablet 06/05/13 Levothyroxine [Synthroid -] 137 mcg PO DAILY 01/14/17 Olmesartan Medoxomil [Benicar -] 40 mg PO DAILY 01/14/17 Hydrocodone/Acetaminophen [[place] 5-325 Tablet] 1 each PO Q6H PRN #40 tablet MDD 4 01/16/17
[2017-01-22 09:34] LABS: BASOPHIL 0.6 % (0-2.0); EOSINOPHIL 1.6 % (0-4.5); MCH 29.7 pg (25.7-33.7); MEAN CELL VOLUME 87.4 fl (80-96); MEAN PLT VOLUME 8.3 fl (7.5-11.1); NEUTROPHILS 73.5 % (42.8-82.8); PLATELET COUNT 269 K/MM3 (134-434); RDW 14.2 % (11.6-15.6); WHITE BLOOD COUNT 8.8 K/mm3 (4.0-10.0)
[2017-01-22] MEDS ORDERED: PT OWN MED DRAWER 7, Y5N ONE (09:44)
[2017-01-22 09:57] LABS: ANION GAP 8 (8-16); CALCIUM 8.1 mg/dL (8.5-10.1); CO2 31 mmol/L (21-32); CREATININE 0.6 mg/dL (0.55-1.02); GLUCOSE,RANDOM 100 mg/dL (74-106); MAGNESIUM 2.3 mg/dL (1.8-2.4)
[2017-01-22] MEDS: MAGNESIUM CL 64 MG TABLET.SA PO SCH (10:14)
[2017-01-22] MEDS: SERTRALINE HCL 50 MG TABLET (FP) PO SCH (10:15)
[2017-01-22] MEDS: PANTOPRAZOLE 40 MG TABLET (FP) PO SCH (10:15)
[2017-01-22] MEDS ORDERED: POTASSIUM CHLORIDE TABS 20 MEQ TABLET.ER (FP) PO ONE (12:30)
[2017-01-22] MEDS: ACETAMINOPHEN 325 MG TABLET (FP) PO PRN (13:00)
--- NOTE | 2017-01-22 13:42 | PN ---
Progress Note, Physician Chief Complaint: Patient appears comfortable. She reports no chest pain, SOB or palpitation. Tele shows sinus rhythm with frequent APCs and rare VPCs. Short atrial runs noted History of Present Illness: 86 year old woman with a history of left should mass. She is s/p tumor resection with significant blood loss. Initial EKG after the surgery was sinus tachycardia at 119 BPM with LAD (LAFB), LVH, and NSSTTW changes. Troponin level 0.02. Her vital signs subsequently stabilized. - Current Medication List Current Medications: Active Medications Acetaminophen (Tylenol -) 650 mg PO Q6H PRN Last Admin: 01/20/17 17:15 Dose: 650 mg Al Hydroxide/Mg Hydroxide (Mylanta Oral Suspension -) 30 ml PO Q6H PRN PRN Reason: DYSPEPSIA Last Admin: 01/21/17 13:07 Dose: 30 ml Levothyroxine Sodium 125 mcg/ (Levothyroxine Sodium 12.5 mcg) 137.5 mcg PO DAILY@0700 [facility] Last Admin: 01/22/17 06:37 Dose: 137.5 mcg Magnesium Chloride (Slow-Mag -) 64 mg PO DAILY [facility] Last Admin: 01/22/17 10:14 Dose: 64 mg Metoprolol Succinate (Toprol Xl -) 25 mg PO HS [facility] Last Admin: 01/21/17 22:11 Dose: 25 mg Morphine Sulfate (Morphine Injection -) 1 mg IVPUSH Q4H PRN PRN Reason: PAIN Last Admin: 01/19/17 00:16 Dose: 1 mg Oxycodone HCl (Roxicodone -) 10 mg PO Q6H PRN PRN Reason: PAIN LEVEL 6-10 Last Admin: 01/17/17 01:26 Dose: 5 mg Pantoprazole Sodium (Protonix -) 40 mg PO BID [facility] Last Admin: 01/22/17 10:15 Dose: 40 mg Rosuvastatin Calcium (Crestor -) 5 mg PO HS [facility] Last Admin: 01/21/17 22:11 Dose: 5 mg Sertraline HCl (Zoloft -) 50 mg PO DAILY [facility] Last Admin: 01/22/17 10:15 Dose: 50 mg Valsartan (Diovan -) 160 mg PO DAILY [facility] Last Admin: 01/22/17 10:15 Dose: 160 mg - Objective Vital Signs: Vital Signs Temperature 98.2 F 01/22/17 09:00 Pulse Rate 78 01/22/17 09:00 Respiratory Rate 16 01/22/17 09:00 Blood Pressure 140/78 01/22/17 09:00 O2 Sat by Pulse Oximetry (%) 96 01/22/17 09:00 Constitutional: Yes: Well Nourished, No Distress Eyes: Yes: WNL HENT: Yes: WNL Neck: Yes: WNL Cardiovascular: Yes: Regular Rate and Rhythm, S1, S2 Respiratory: Yes: Regular, CTA Bilaterally Gastrointestinal: Yes: WNL ...Rectal Exam: Yes: Deferred Extremities: Yes: WNL (Right shoulder dress intacted.) Edema: No Labs: CBC, BMP 01/22/17 09:28 01/22/17 09:28 INR, PTT INR 1.14 (0.82-1.09) 01/17/17 05:15 Assessment/Plan 86 year old woman with a history of left should mass. She is s/p tumor resection with significant blood loss. Initial EKG after the surgery was sinus tachycardia at 119 BPM with LAD (LAFB), LVH, and NSSTTW changes. Troponin level 0.02. No symptoms of angina or CHF. Contninue Metoprolol Succinate (Toprol Xl -) 25 mg daily and Crestor 5 mg daily. May hold Valsartan for relatively low BP. No cardiac contraindication to discharge the patient to [facility].
[2017-01-22 15:48] VITALS: BP 110/56; PULSE 76; TEMP 98
[2017-01-23 06:06] LABS: SERUM IRON 12 ug/dL (27-139); TOTAL IRON BINDING CAPACITY 162 ug/dL (250-450); UIBC 150 ug/dL (118-369)
--- NOTE | 2017-01-28 11:33 | PATH ---
Surgical Pathology Report Patient Name: NAFISA MILNER [facility]. Rec. #: [id number] /Age/Gender: 1930 (Age: 86) / F Account: [id number] Location: 4 W TELEMETRY U Taken: 01/16/2017 Received: 01/16/2017 Reported: 01/28/2017 Physicians: Ubaldo Virgen M.D. Specimen(s) Received A: MASS LEFT SHOULDER B: MASS LEFT SHOULDER Clinical History Left shoulder mass Final Diagnosis A,B. shoulder, left, mass, excision: This case was sent to [facility], [place], [place] FOR CONSULTATION (consultation report: [id number]) and the following diagnosis was rendered there Dr. 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 "While areas of this lesion indeed resemble fibromatosis, nevertheless, in many areas there is notably greater cellularity than expected in that context. There is also mild but undoubted nuclear atypia along with focally evident mitotic activity. The lesional cells, for the most part, have tapering nuclei and indistinct pale eosinophilic cytoplasm and the growth pattern is fascicular. There is a focally myxoid matrix. There are areas of hyalinization and infarction but i do not see true coagulative tumor necrosis. Immunostains show just multifocal positivity for SMA, while S-100 protein, SOX10, desmin and MUC4 are negative. 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 Excision is piecemeal with what appears to be multifocally positive margins and there is therefore a high likelihood of continued local growth". Electronically Signed Jasmyn Patel M.D. Gross Description A. Received fresh labeled "left shoulder mass," is a 28.5 x 20.0 x 6.0 cm aggregate of multiple grajeda-red, irregular, unoriented portions of tissue. Sectioning reveals grajeda-yellow, focally calcified fibrotic tissue. Farm[employer] sections are submitted in 20 cassettes (cassettes 14-20 following decalcification). B. Received in formalin labeled "left shoulder mass," is a 16.5 x 13.0 x 9.0 cm aggregate of multiple grajeda-red, irregular, unoriented portions of tissue. Sectioning reveals grajeda-yellow, focally calcified fibrotic tissue. Farmhand sections are submitted in 10 cassettes (cassettes 9-10 following decalcification). 01/16/201701/16/2017
== END 2017-01-22 15:22 | DRG 464 ==
LOC: JASU-SURG 07:29 → JSAMEDAYSX 12:20 → JICU 16:40 → J4W 01-17 20:50
PROVIDERS: ADMIT Orthopaedic Surgery; ATTEND Orthopaedic Surgery
PROC: 0JXF0ZC Transfer Left Upper Arm Subcutaneous Tissue and Fascia with Skin, Subcutaneous Tissue and Fascia, Open Approach (ICD-10-PCS; 2017-01-16)
PROC: 30233N1 Transfusion of Nonautologous Red Blood Cells into Peripheral Vein, Percutaneous Approach (ICD-10-PCS; 2017-01-16)
PROC: 0JBF0ZZ Excision of Left Upper Arm Subcutaneous Tissue and Fascia, Open Approach (ICD-10-PCS; principal; 2017-01-16 09:00)
DX: M72.9 Fibroblastic disorder, unspecified (principal); D62 Acute posthemorrhagic anemia; I97.89 Other postprocedural complications and disorders of the circulatory system, not elsewhere classified; L76.32 Postprocedural hematoma of skin and subcutaneous tissue following other procedure; Y83.8 Other surgical procedures as the cause of abnormal reaction of the patient, or of later complication, without mention of misadventure at the time of the procedure; I10 Essential (primary) hypertension; E78.5 Hyperlipidemia, unspecified; R10.13 Epigastric pain; K21.9 Gastro-esophageal reflux disease without esophagitis; K44.9 Diaphragmatic hernia without obstruction or gangrene; E03.9 Hypothyroidism, unspecified
CPT/HCPCS: 36415; 36430; 71010-TC; 80048; 80053; 81003; 81015; 82728; 83540; 83550; 83735; 84100; 84443; 84484; 85025; 85027; 85610; 85730; 86850; 86900; 86901; 86922; 87040; 87086; 88307-TC; 93005; 93010; 94010; 94760; 97116-GP; 97162-GP; P9038; P9058

== ENCOUNTER 2018-10-15 22:07 | Emergency (ER) | payer OTHER, MEDICARE ==
[2018-10-15 22:28] VITALS: BMI 28.3
[2018-10-16] MEDS ORDERED: ONDANSETRON *ODT* 4 MG TABLET SL ONE (00:33)
[2018-10-16] MEDS ORDERED: traMADol HCL 50 MG TABLET PO ONE (00:34)
[2018-10-16] MEDS ORDERED: ONDANSETRON *ODT* 4 MG TABLET ONE (01:10)
[2018-10-16] MEDS ORDERED: traMADol HCL 50 MG TABLET ONE (01:10)
--- NOTE | 2018-10-16 01:58 | PDOC ---
Documentation entered by Barbara Marsh SCRIBE, acting as scribe for Chadwick Ramsay MD. Chadwick Ramsay MD: This documentation has been prepared by the Salma farris Daisy, SCRIBE, under my direction and personally reviewed by me in its entirety. I confirm that the documentation accurately reflects all work, treatment, procedures, and medical decision making performed by me. History of Present Illness - General Chief Complaint: Injury Stated Complaint: FALL Time Seen by Provider: 10/15/18 22:31 History Source: Patient Exam Limitations: No Limitations - History of Present Illness Initial Comments: 10/15/18 22:58 The patient is a 88 YOF with a PMH of hypothyroidism, HTN, HLD, and depression who presents to the ER s/p unwitnessed fall prior to arrival. Patient reports she missed a step and fell backwards sustaining head trauma but denies any other injuries. Denies any loss of consciousness. Patient states she was unable to get up secondary to chronic back pain. Patient's neighbors helped her get up and walk into her house prior to EMS arriving. Patient endorses nausea that has now resolved, but states this may be due to having just eaten. Not currently on any anticoagulants. Allergies: NKDA Past History - Past Medical History Allergies/Adverse Reactions: Allergies Allergy/AdvReac Type Severity Reaction Status Date / Time No Known Allergies Allergy Verified 10/15/18 22:28 Home Medications: Ambulatory Orders Metoprolol Succinate [Toprol XL -] 25 mg PO HS #0 tab.sr.24h 06/05/13 Rosuvastatin Calcium [Crestor] 5 mg NR HS #0 tablet 06/05/13 Sertraline HCl [Zoloft -] 50 mg PO DAILY #0 tablet 06/05/13 Levothyroxine [Synthroid -] 137 mcg PO DAILY 01/14/17 Mag Hydrox/Al Hydrox/Simeth [Mylanta Oral Suspension -] 30 ml PO Q6H PRN #0 ml 01/22/17 Magnesium Chloride [Slow-Mag -] 64 mg PO DAILY tab 01/22/17 Pantoprazole Sodium [Protonix -] 40 mg PO BID tab 01/22/17 Valsartan [Diovan] 160 mg PO DAILY tablet 01/22/17 oxyCODONE HCL [Roxicodone -] 10 mg PO Q6H #0 tablet MDD 4 01/22/17 HTN: Yes Hypercholesterolemia: Yes Psychiatric Problems: Yes (depression) Thyroid Disease: Yes - Surgical History Cholecystectomy: Yes (1968) - Immunization History Immunization Up to Date: Yes - Suicide/Smoking/Psychosocial Hx Smoking Status: No Smoking History: Never smoked Have you smoked in the past 12 months: No Number of Cigarettes Smoked Daily: 0 Information on smoking cessation initiated: No Hx Alcohol Use: No Drug/Substance Use Hx: No Substance Use Type: None Hx Substance Use Treatment: No Review of Systems - Review of Systems Able to Perform ROS?: Yes Comments:: 10/15/18 23:06 ADULT ROS CONSTITUTIONAL: No fever, no chills, no fatigue EYES: No visual changes ENT: No ear pain, no sore throat CARDIOVASCULAR: No chest pain, no palpitations RESPIRATORY: No cough, no SOB GI: No abdominal pain, no nausea, no vomiting, no constipation, no diarrhea GENITOURINARY: No dysuria, no frequency, no hematuria MUSKULOSKELETAL: (+) chronic back pain. no joint pain, no myalgias SKIN: No rash NEURO: No headache *Physical Exam - Vital Signs Last Vital Signs Temp Pulse Resp BP Pulse Ox 97.8 F 96 H 20 168/96 98 10/15/18 22:07 10/15/18 22:07 10/15/18 22:07 10/15/18 22:07 10/15/18 22:07 - Physical Exam Comments: 10/15/18 23:03 ADULT EXAMINATION CONSTITUTIONAL: Alert and awake, oriented 3, Well-appearing; well-nourished HEAD: (+) Abrasion and soft tissue swelling to the occipital area without bony crepitus or step-offs EYES: PERRL; EOM intact NECK: Supple; no obvious deformity, C 3/C4 tenderness CARD: Normal S1, S2; no murmurs, rubs, or gallops RESP: Normal chest excursion with respiration; breath sounds clear and equal bilaterally; no wheezes, rhonchi, or rales ABD: Soft, non-distended; non-tender; no palpable organomegaly, no palpable hernias BACK: No bony tenderness or crepitus. (+) Mild tenderness to the L2 and L3. PELVIS: Stable EXT: Normal ROM in all four extremities; non-tender to palpation; distal pulses intact SKIN: Warm, dry, no rash NEURO: Cranial nerves II through XII are grossly intact; motor is 5 of 54; gait deferred at this time. ED Treatment Course - RADIOLOGY Radiology Studies Ordered: Category Date Time Status CERVICAL SPINE CT W/O CONTR [CT] Stat CT Scan 10/15/18 22:[address] (STROKE) [CT] Stat CT Scan 10/15/18 22:[address] W/O CONTRAST [CT] Stat CT Scan 10/15/18 22:59 Taken - Medications Given in the ED: ED Medications Discontinued Medications Generic Name Dose Route Start Last Admin Trade Name Freq PRN Reason Stop Dose Admin Ondansetron HCl 4 mg 10/16/18 00:33 10/16/18 01:35 Zofran Odt - SL 10/16/18 00:34 4 mg ONCE ONE Administration Tramadol HCl 50 mg 10/16/18 00:34 10/16/18 01:35 Ultram - PO 10/16/18 00:35 50 mg ONCE ONE Administration Medical Decision Making - Medical Decision Making 10/16/18 01:42 Imaging: Head CT Impression: [id number] atrophy without gross evidence of acute intracranial pathology. Moderate soft tissue swelling of the scalp/hematoma over the posterior/superior aspect of the head. Reported by: Dr. Oliveira Imaging: C-spine CT Findings: There is no fracture or subluxation. Bony alignment is normal. The vertebral body heights are preserved. There are moderate to severe multilevel degenerative changes. Dextrocurvature of the cervical spine is likely chronic as there is more severe facet arthropathy on the left side. The prevertebral soft tissues are within normal limits. Included portions of the upper lungs are clear. There is mild pleural thickening at the lung apices Reported by: Dr. Ruiz Imaging: L-spine CT Findings: The bones are demineralized There is levoscoliosis of the lumbar spine Bony alignment is maintained There is a concave compression fracture in the inferior endplate of T12 which is of indeterminate age, possibly chronic. There are no other fractures visualized The vertebral body heights are otherwise preserved Moderate to severe multilevel degenerative changes Transitional S1 vertebra The sacroiliac joints are intact with incidental bilateral vacuum phenomenon The paraspinal soft tissues are grossly normal Reported by: Dr. Ruiz 10/16/18 01:56 Patient is an 88-year-old female with history of chronic low back pain who presented to the ER post mechanical fall. CT of head and cervical spine shows no evidence of acute pathology. Lumbar spine CT reveals no evidence of acute fracture, chronic endplate fracture of T12 is noted. Patient is nonfocal neurologically. No indication for admission at this time. Will discharge. *DC/Admit/Observation/Transfer Diagnosis at time of Disposition: Head injury, acute Qualifiers: Encounter type: initial encounter Qualified Code(s): S09.90XA - Unspecified injury of head, initial encounter - Discharge Dispostion Disposition: HOME Condition at time of disposition: Fair - Referrals Referrals: Rosario Marion MD [Primary Care Provider] - - Patient Instructions Printed Discharge Instructions: DI for Closed Head Injury - Post Discharge Activity - Attestations Scribe Attestion: 10/15/18 23:07 Documentation prepared by Barbara Marsh, acting as biomedical engineering aide for Chadwick Ramsay MD.
[2018-10-16 02:15] VITALS: BP 148/93; PULSE 97; TEMP 98.1
== END 2018-10-16 02:24 | disposition home or self-care (01) ==
LOC: JER 22:07
DX: S09.8XXA Other specified injuries of head, initial encounter (principal); W10.8XXA Fall (on) (from) other stairs and steps, initial encounter; Y93.89 Activity, other specified; Y92.018 Other place in single-family (private) house as the place of occurrence of the external cause; Y99.8 Other external cause status; I10 Essential (primary) hypertension; E78.00 Pure hypercholesterolemia, unspecified; E03.9 Hypothyroidism, unspecified; F32.9 Major depressive disorder, single episode, unspecified; M54.89 Other dorsalgia; G89.29 Other chronic pain; Z90.49 Acquired absence of other specified parts of digestive tract
CPT/HCPCS: 70450-TC; 72125-TC; 72131-TC; 99283-25; Q0162